=== PATIENT | male | born 1960 | race Caucasian/White ===

== ENCOUNTER → 2018-06-22 16:09 | Outpatient (CLI) | payer OTHER, SELFPAY ==
[2018-04-29 08:27] VITALS: BMI 34.9
[2018-06-22 17:37] LABS: T4 Free Direct 0.63 ng/dL (0.76-1.46); Thyroid Stim Hormone (TSH) 6.89 uIU/mL (0.358-3.74)
--- OUTSIDE RECORDS SUMMARY | 2018-09-24 09:01 | XMS RPT_ITS ---
:1960 Author Organization [facility] Care Team Providers Name Role Phone GANTA, LUCIA Attending Unavailable GANTA, LUCIA Referring Unavailable GANTA, LUCIA Referring Unavailable GANTA, LUCIA Attending Unavailable GANTA, LUCIA Referring Unavailable GANTA, LUCIA Referring Unavailable REY SPARROW (CHILD THERAPIST) Attending Unavailable GANTA, LUCIA Referring Unavailable HOA CORREA ([facility]) Attending Unavailable ELIECER GARDINER ([facility]) Referring Unavailable REY SPARROW (CHILD THERAPIST) Attending Unavailable Brian REED Referring Unavailable GANTA, LUCIA Referring Unavailable REY SPARROW ([facility]) Attending Unavailable REY SPARROW (CHILD THERAPIST) Referring Unavailable GANTA, LUCIA Referring Unavailable Zuleika Reed [employer] Attending Unavailable Zuleika Reed [employer] Referring Unavailable Ganta, Lucia Primary Care Unavailable Zuleika Reed [employer] Attending Unavailable Ganta, Lucia Referring Unavailable Ganta, Lucia Primary Care Unavailable Zuleika Reed [employer] Attending Unavailable Ganta, Lucia Referring Unavailable PROBLEMS PROBLEMS DATE TYPE CONDITION / CODE ATTENDING STATUS SOURCE 05/19/2018 Active 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 [facility] [place] therapy / Repository Z79.899(ICD-10) 04/29/2018 Unknown E03.9 - Zuleika Reed Active [place] Hypothyroidism, [employer] Community unspecified / Hospital E03.9(ICD-10) Repository 02/09/2015 Active Hypothyroidism, NA Active [facility] unspecified / [place] E03.9(ICD-10) Repository 08/21/2017 Active Other fatigue / NA Active [facility] R53.83(ICD-10) [place] Repository 08/21/2017 Active Major depressive NA Active [facility] disorder, single [place] episode, Repository unspecified / F32.9(ICD-10) 08/21/2017 Active Unknown / GANTA, LUCIA Active [facility] UNK(Unknown) [facility] [place] Repository PROCEDURES PROCEDURES No Procedure Records FoundRESULTS RESULTS FREE T3 Collected: 06/22/2018 Status: F Source: [place] 4:22 PM [facility] REPOSITORY TYPE CODE TESTS RESULT OUT OF RANGE REFERENCE UNITS LAB [id number] 2.18-3.98 pg/mL Normal FREE T3 3.0 Performed By: #### L501.48635, L501.9520, L506.0400 #### [facility] [address] [place], [place], [address] THYROID STIM HORMONE Collected: 06/22/2018 Status: F Source: [place] (TSH) 4:22 PM [facility] REPOSITORY TYPE CODE TESTS RESULT OUT OF RANGE REFERENCE UNITS LAB [id number] 0.358-3.74 uIU/mL High TSH 6.89 Performed By: #### L501.82260, L501.9520, L506.0400 #### [facility] [address] [place], [address] T4 FREE DIRECT Collected: 06/22/2018 Status: F Source: GEPP 4:22 PM [facility] REPOSITORY TYPE CODE TESTS RESULT OUT OF REFERENCE UNITS RANGE LAB [id number] 0.76-1.46 ng/dL Low T4 FREE 0.63 DIRECT Performed By: #### L501.40843, L501.9520, L506.0400 #### [facility] [address] [place], [address] CNNURSE Observed: 06/11/2018 Status: COMPLETED Source: [place] 3:45 PM [facility] REPOSITORY Nurse Visit (FAMPWS) WALDO FRANKS ([id number]) 1960 M Date Time Provider Department 06/11/18 3:45 PM [facility] During your visit today, we recorded the following information about you: Karely Mahmoodsammi TAMAYO 06/11/2018 3:45 PM Signed Manual Readin/82 Pulse: 78 Reason for blood pressure check - Last BP elevated and Medication adjustment Patient is: Taking medication as prescribed No Took medication today Yes If no, date medication last taken N/A Experiencing side effects Yes BP was elevated at last appt with Rey Sparrow CNP, on 05/21/18. Patient was to increase Valsartan to full 80mg daily. He states that he was until approx 1 week ago he cut back down to 1/2 tablet. Reports increased GI upset and fatigue. Denies any chest pain, shortness of breath, dizziness, or headaches. Daily caffeine use. No personal history of tobacco use; no current exposure. Alert and oriented. Pt has been identified by name and birthdate: Yes Allergies reviewed: Yes Latex allergy: no. Medication - prescribed and OTC reviewed and updated: Yes Do you need any prescription refills prior to your next visit: No Health Maintenance: Reviewed and not up to date and provider notified Patient advised that he would be contacted after review by Dr research associate quality control qc. Karely Segura LPN Referring Provider: LUCIA JOHNSTON [[id number]] Allergies As of Date: 06/11/2018 Noted Allergy Reaction CATS 12/07/2010 9 - Itching RAGWEED 12/07/2010 14 - Other: See Comments Comments: Itching eyes, breathing Date Reviewed: 05/21/2018 Reviewed by: Sarai Benavides LPN - Fully Assessed Reason for Visit: Blood Pressure Check [195] Primary Visit Diagnosis:Essential hypertension [I10] Prescriptions as of 06/11/2018 Sig: SILDENAFIL 50 MG TABLET Take 1 tablet by mouth as nee* VALSARTAN 80 MG TABLET Take 1 tablet by mouth once d* Patient taking differently: Take 40 mg by mouth once renée* ARMOUR THYROID 120 MG TABLET TAKE 1 TABLET DAILY IBUPROFEN 200 MG CAPSULE Take by mouth. * MULTIVITAMIN TABLET Take 1 tablet by mouth once d* * VITAMIN B COMPLEX CAPSULE Take 1 capsule by mouth once * * OTC PRODUCT twice daily. Magnesium comple* * VITAMIN D2 ORAL Take by mouth once daily. * ASCORBIC ACID (VITAMIN C) 500* Take 500 mg by mouth twice da* Problem List As Of Date 06/11/2018 Noted Resolved SKIN HYPERTRO/ATROPH NOS [L91.9, L90.9] INVALID FOR* BENIGN MARCUS SKIN TRUNK [D23.5] INVALID FOR* SEBORRHEIC KERATOSIS NOS [L82.1] INVALID FOR* CHR SOLAR SKIN DAMAGE NOS [L57.8] INVALID FOR* SCAR AND FIBROSIS OF SKIN [L90.5] INVALID FOR* UNCERTAIN BEHAV NEOPL SKIN [D48.5] INVALID FOR* AXILLARY////BENIGN NEOPLASM OF SKIN [216] INVALID FOR* Cough [R05] INVALID FOR* More... Acquired hypothyroidism [E03.9] INVALID FOR* More... Essential hypertension [I10] INVALID FOR* More... OA (osteoarthritis) of knee [M17.10] INVALID FOR* More... Encounter Status:Closed by KARELY SEGURA LPN on 06/11/18 PROGRESS Observed: 06/11/2018 Status: COMPLETED Source: [place] 3:36 PM [facility] [place] REPOSITORY O ID: [id number] Author: Karely Segura LPN Service: (none) Author Type: (none) Type: Progress Notes Filed: 06/11/2018 3:45 PM Note Text: Manual Readin/82 Pulse: 78 Reason for blood pressure check - Last BP elevated and Medication adjustment Patient is: Taking medication as prescribed No Took medication today Yes If no, date medication last taken N/A Experiencing side effects Yes BP was elevated at last appt with Rey Sparrow CNP, on 05/21/18. Patient was to increase Valsartan to full 80mg daily. He states that he was until approx 1 week ago he cut back down to 1/2 tablet. Reports increased GI upset and fatigue. Denies any chest pain, shortness of breath, dizziness, or headaches. Daily caffeine use. No personal history of tobacco use; no current exposure. Alert and oriented. Pt has been identified by name and birthdate: Yes Allergies reviewed: Yes Latex allergy: no. Medication - prescribed and OTC reviewed and updated: Yes Do you need any prescription refills prior to your next visit: No Health Maintenance: Reviewed and not up to date and provider notified Patient advised that he would be contacted after review by Dr research associate quality control qc. Karely Segura LPN PROGRESS Observed: 05/21/2018 Status: COMPLETED Source: [place] 11:13 AM [facility] [place] REPOSITORY O ID: [id number] Author: Rey Sparrow Service: (none) Author Type: Nurse Practitioner Type: Progress Notes Filed: 05/21/2018 12:10 PM Note Text: CC: Patient presents with: Recheck: Follow up HPI Waldo Franks is a 57 year old male who presents today for 6 wu follow up and review of recent labs. HTN: Mr. Franks indicates that he is feeling well and denies any symptoms referable to elevated blood pressure. Specifically denies headache, chest pain, palpitations, dyspnea and peripheral edema. Patient denies any side effects of his medication(s) and is compliant with their regimen, except only taking 1/2 of prescribed dose d/t previous GI upset, planned to resume full dose at last visit with PCP but reports he forgot. He does not check his BP regularly. Waldo gets minimal exercise, walks 15-20 minutes at lunchtime, would like to start using treadmill again but doesn't seem to have the energy lately.. He watches his diet for sodium, low fat and low cholesterol most of the time. Mk's He is doing well on his current dose of [place] Thyroid. Following with Endocrinology, currently discussing changing medications d/t T4/T3 levels. Notes he has been feeling fatigued lately and unable to lose weight in fact up a few pounds. On vitamin d supplement already. TSH recently checked, on higher end of normal. A1C noted to be slightly elevated at 5.7%. Reviewed levels with patient. Component Latest Ref Rng AND Units 05/19/2018 Hemoglobin A1C 4.3 - 5.6 % 5.7 (H) Estimated Average Glucose mg/dL 117 TSH 0.400 - 5.500 uU/mL 4.730 REVIEW OF SYSTEMS General: no fevers, no chills, no night sweats, no recurrent infections, no change in appetite and See HPI HEENT: no frequent or significant headaches, no visual changes, no nose bleeds, no sinus or nasal problems Positive: tinnitus bilaterally R>L states noted correlation with salt intake, varies in intensity but remains consistent. Decreased hearing noted Neck: no lumps, no pain and no swelling Respiratory: no cough, no wheezing, no shortness of breath, no hemoptysis Cardiovascular: no chest pain, no chest pressure, no palpitations and no swelling GI: No nausea, vomiting, or diarrhea Endocrine: no weight gain, no weight loss, no hair loss, no dry skin, no cold intolerance, no heat intolerance, no neck pain/pressure, no polyuria, no polyphagia, no polydipsia and See HPI Neurologic: No headache, weakness, numbness, tingling, neck stiffness, tremor, vertigo, dizziness, memory loss, syncope. PAST MEDICAL HISTORY Diagnosis Date - Depression - Mk's disease - Hypertension - Hypothyroid PAST SURGICAL HISTORY Procedure Laterality Date - COLONOSCOP W/ OR W/O [facility] SPEC 06/11/13 Colonoscopy - REMOVAL OF TONSILS,<12 Y/O 2004 Tonsillectomy alone - REPAIR ING HERNIA,5+Y/O,REDUCIBL Hernia repair, inguinal - REPAIR OF NASAL SEPTUM 1978 Septoplasty ALLERGIES Cats; [place] MEDICATIONS sildenafil (VIAGRA) 50 mg tablet Take 1 tablet by mouth as needed. Take 30 to 60min before sexual activity. ARMOUR THYROID 120 mg tablet TAKE 1 TABLET DAILY Ibuprofen 200 mg cap Take by mouth. multivitamin (MULTIPLE VITAMINS DAILY) ORAL tablet Take 1 tablet by mouth once daily. B Complex Vitamins (VITAMIN B COMPLEX) ORAL capsule Take 1 capsule by mouth once daily. OTC PRODUCT twice daily. Magnesium complex vitamin ERGOCALCIFEROL, VITAMIN D2, (VITAMIN D ORAL) Take by mouth once daily. ascorbic acid (VITAMIN C) 500 mg ORAL tablet Take 500 mg by mouth twice daily. valsartan (DIOVAN) 80 mg tablet Take 1 tablet by mouth once daily. FAMILY HISTORY Problem Relation Age of Onset - Thyroid Father hypothyroidism - other (Hodgkins) Father in remission, later from injuries in a car accident. - Breast Cancer Mother - other (Myastenia Gravis) Mother - other (ulcerative colitis) Mother - Cancer Maternal Grandfather liver - other (CHF) Maternal Grandmother - Diabetes Paternal Grandmother - other (IN) Paternal Grandfather - Hypertension Brother also kidney stones - hiatial hernia - other (mk's) Daughter - other (mk's) Daughter Social History Substance Use Topics - Smoking status: Never Smoker - Smokeless tobacco: Never Used - Alcohol use Yes Comment: rarely PHYSICAL EXAM BP 142/94 Pulse 84 Resp 20 Wt 121.1 kg (267 lb) BMI 35.23 kg/m? General Appearance: well appearing, in no acute distress, alert Pysch: affect is anxious Skin: Skin color, texture, turgor normal for age; Head: normocephalic, atraumatic Eyes: conjunctiva pink and moist, no icterus, sclera white, non-injected Ears: external ears normal to inspection and palpation, canals clear, Left tympanic membrane normal. , Right tympanic membrane normal Neck: Thyroid normal size and symmetric without palpable nodules, No adenopathy Oropharynx: lips normal without lesions, tongue midline and normal, soft palate, uvula, and tonsils normal Lungs: lungs clear to auscultation. No wheezing, rhonchi, rales Heart: RRR without murmur, gallop, or rubs. No ectopy Abdomen: Abdomen soft, non-tender mildly distended . Bowel sounds normal. No masses, organomegaly BP CONTROLLED (<130/80) due on 10/16/1977 DTAP,TDAP,TD(1 - Tdap) due on 03/17/2013 ANNUAL PCP TEAM CHRONIC DISEASE VISIT due on 04/07/2019 DIABETES SCREEN due on 05/19/2021 LIPID SCREEN due on 07/05/2021 COLORECTAL CANCER SCREENING,SEE MODIFIER due on 06/11/2023 PROSTATE CANCER SCREENING DISCUSSION Completed INFLUENZA Completed HEPATITIS C SCREENING Completed ASSESSMENT/PLAN: 1. Essential hypertension - ICD9: 401.9, ICD10: I10 (primary diagnosis) - suboptimal control - Begin full dose valsartan - Encouraged dietary sodium restriction/DASH diet - Recommended regular aerobic exercise. - Recommend home blood pressure monitoring, to bring results in on next visit - Follow up in 1 month for BP recheck. - Recheck in 6 months, sooner should new symptoms or problems arise. - Goal of BP <130/80 - Recommended no refined sugar, low refined starch, healthy oil intake (olive oil), healthy protein (fish) along the lines of the Mediterranean diet. 2. Acquired hypothyroidism - ICD9: 244.9, ICD10: E03.9 - Instructed patient on importance of taking on an empty stomach either first thing in the morning or at bedtime. - Follows with Endocrinology, upcoming appointment in few weeks - Follow up in 6 months 3. Prediabetes - ICD9: 790.29, ICD10: R73.03 - Mildly elevated A1C, reviewed results with patient. Discussed alf risk for developing diabetes - Recommend diet and exercise - Recheck labs in ~6 months, sooner for new or worsening symptoms 4. Fatigue, unspecified type - ICD9: 780.79, ICD10: R53.83 - Discussed potential thyroid involvement, previous discussion had with can line examiner re: medication changes. TSH remains on the high end of normal - CBC - VITAMIN D 25 HYDROXY 5. History of vitamin D deficiency - ICD9: V12.1, ICD10: Z86.39 - VITAMIN D 25 HYDROXY 6. Tinnitus of both ears - ICD9: 388.30, ICD10: H93.13 - Ongoing, no acute or concerning exam findings this visit - CONSULT TO ENT Rey Sparrow APRN.CHILD THERAPIST Prescription instructions reviewed with patient as applicable. Potential red flag symptoms discussed with the patient. Reviewed appropriate action plan to take if red flag symptoms occur. Patient agreeable to treatment plan. CNOV Observed: 05/21/2018 Status: COMPLETED Source: [place] 11:00 AM [facility] REPOSITORY Office Visit (INTMWS) WALDO FRANKS ([id number]) 1960 M Date Time Provider Department 05/21/18 11:00 AM REY SPARROW ([place]) IN[facility]WS During your visit today, we recorded the following information about you: Pulse Respiration Blood pressure Weight 84/minute 20/minute 150/96 121.1 kg Rey Sparrow APRN.CNP 05/21/2018 12:10 PM Signed CC: Patient presents with: Recheck: Follow up HPI Waldo Franks is a 57 year old male who presents today for 6 wu follow up and review of recent labs. HTN: Mr. Franks indicates that he is feeling well and denies any symptoms referable to elevated blood pressure. Specifically denies headache, chest pain, palpitations, dyspnea and peripheral edema. Patient denies any side effects of his medication(s) and is compliant with their regimen, except only taking 1/2 of prescribed dose d/t previous GI upset, planned to resume full dose at last visit with PCP but reports he forgot. He does not check his BP regularly. Waldo gets minimal exercise, walks 15-20 minutes at lunchtime, would like to start using treadmill again but doesn't seem to have the energy lately.. He watches his diet for sodium, low fat and low cholesterol most of the time. Mk's He is doing well on his current dose of [place] Thyroid. Following with Endocrinology, currently discussing changing medications d/t T4/T3 levels. Notes he has been feeling fatigued lately and unable to lose weight in fact up a few pounds. On vitamin d supplement already. TSH recently checked, on higher end of normal. A1C noted to be slightly elevated at 5.7%. Reviewed levels with patient. Component Latest Ref Rng AND Units 05/19/2018 Hemoglobin A1C 4.3 - 5.6 % 5.7 (H) Estimated Average Glucose mg/dL 117 TSH 0.400 - 5.500 uU/mL 4.730 REVIEW OF SYSTEMS General: no fevers, no chills, no night sweats, no recurrent infections, no change in appetite and See HPI HEENT: no frequent or significant headaches, no visual changes, no nose bleeds, no sinus or nasal problems Positive: tinnitus bilaterally R>L states noted correlation with salt intake, varies in intensity but remains consistent. Decreased hearing noted Neck: no lumps, no pain and no swelling Respiratory: no cough, no wheezing, no shortness of breath, no hemoptysis Cardiovascular: no chest pain, no chest pressure, no palpitations and no swelling GI: No nausea, vomiting, or diarrhea Endocrine: no weight gain, no weight loss, no hair loss, no dry skin, no cold intolerance, no heat intolerance, no neck pain/pressure, no polyuria, no polyphagia, no polydipsia and See HPI Neurologic: No headache, weakness, numbness, tingling, neck stiffness, tremor, vertigo, dizziness, memory loss, syncope. PAST MEDICAL HISTORY Diagnosis Date - Depression - Mk's disease - Hypertension - Hypothyroid PAST SURGICAL HISTORY Procedure Laterality Date - COLONOSCOP W/ OR W/O [facility] SPEC 06/11/13 Colonoscopy - REMOVAL OF TONSILS,<12 Y/O 2004 Tonsillectomy alone - REPAIR ING HERNIA,5+Y/O,REDUCIBL Hernia repair, inguinal - REPAIR OF NASAL SEPTUM 1978 Septoplasty ALLERGIES Cats; [place] MEDICATIONS sildenafil (VIAGRA) 50 mg tablet Take 1 tablet by mouth as needed. Take 30 to 60min before sexual activity. ARMOUR THYROID 120 mg tablet TAKE 1 TABLET DAILY Ibuprofen 200 mg cap Take by mouth. multivitamin (MULTIPLE VITAMINS DAILY) ORAL tablet Take 1 tablet by mouth once daily. B Complex Vitamins (VITAMIN B COMPLEX) ORAL capsule Take 1 capsule by mouth once daily. OTC PRODUCT twice daily. Magnesium complex vitamin ERGOCALCIFEROL, VITAMIN D2, (VITAMIN D ORAL) Take by mouth once daily. ascorbic acid (VITAMIN C) 500 mg ORAL tablet Take 500 mg by mouth twice daily. valsartan (DIOVAN) 80 mg tablet Take 1 tablet by mouth once daily. FAMILY HISTORY Problem Relation Age of Onset - Thyroid Father hypothyroidism - other (Hodgkins) Father in remission, later from injuries in a car accident. - Breast Cancer Mother - other (Myastenia Gravis) Mother - other (ulcerative colitis) Mother - Cancer Maternal Grandfather liver - other (CHF) Maternal Grandmother - Diabetes Paternal Grandmother - other ([place]) Paternal Grandfather - Hypertension Brother also kidney stones - hiatial hernia - other (mk's) Daughter - other (mk's) Daughter Social History Substance Use Topics - Smoking status: Never Smoker - Smokeless tobacco: Never Used - Alcohol use Yes Comment: rarely PHYSICAL EXAM BP 142/94 Pulse 84 Resp 20 Wt 121.1 kg (267 lb) BMI 35.23 kg/m? General Appearance: well appearing, in no acute distress, alert Pysch: affect is anxious Skin: Skin color, texture, turgor normal for age; Head: normocephalic, atraumatic Eyes: conjunctiva pink and moist, no icterus, sclera white, non-injected Ears: external ears normal to inspection and palpation, canals clear, Left tympanic membrane normal. , Right tympanic membrane normal Neck: Thyroid normal size and symmetric without palpable nodules, No adenopathy Oropharynx: lips normal without lesions, tongue midline and normal, soft palate, uvula, and tonsils normal Lungs: lungs clear to auscultation. No wheezing, rhonchi, rales Heart: RRR without murmur, gallop, or rubs. No ectopy Abdomen: Abdomen soft, non-tender mildly distended . Bowel sounds normal. No masses, organomegaly BP CONTROLLED (<130/80) due on 10/16/1977 DTAP,TDAP,TD(1 - Tdap) due on 03/17/2013 ANNUAL PCP TEAM CHRONIC DISEASE VISIT due on 04/07/2019 DIABETES SCREEN due on 05/19/2021 LIPID SCREEN due on 07/05/2021 COLORECTAL CANCER SCREENING,SEE MODIFIER due on 06/11/2023 PROSTATE CANCER SCREENING DISCUSSION Completed INFLUENZA Completed HEPATITIS C SCREENING Completed ASSESSMENT/PLAN: 1. Essential hypertension - ICD9: 401.9, ICD10: I10 (primary diagnosis) - suboptimal control - Begin full dose valsartan - Encouraged dietary sodium restriction/DASH diet - Recommended regular aerobic exercise. - Recommend home blood pressure monitoring, to bring results in on next visit - Follow up in 1 month for BP recheck. - Recheck in 6 months, sooner should new symptoms or problems arise. - Goal of BP <130/80 - Recommended no refined sugar, low refined starch, healthy oil intake (olive oil), healthy protein (fish) along the lines of the Mediterranean diet. 2. Acquired hypothyroidism - ICD9: 244.9, ICD10: E03.9 - Instructed patient on importance of taking on an empty stomach either first thing in the morning or at bedtime. - Follows with Endocrinology, upcoming appointment in few weeks - Follow up in 6 months 3. Prediabetes - ICD9: 790.29, ICD10: R73.03 - Mildly elevated A1C, reviewed results with patient. 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 Fatigue, unspecified type - ICD9: 780.79, ICD10: R53.83 - Discussed potential thyroid involvement, previous discussion had with can line examiner re: medication changes. TSH remains on the high end of normal - CBC - VITAMIN D 25 HYDROXY 5. History of vitamin D deficiency - ICD9: V12.1, ICD10: Z86.39 - VITAMIN D 25 HYDROXY 6. Tinnitus of both ears - ICD9: 388.30, ICD10: H93.13 - Ongoing, no acute or concerning exam findings this visit - CONSULT TO ENT Rey Sparrow APRN.[place] Prescription instructions reviewed with patient as applicable. Potential red flag symptoms discussed with the patient. Reviewed appropriate action plan to take if red flag symptoms occur. Patient agreeable to treatment plan. Rey Sparrow APRN.CNP 05/21/2018 11:46 AM Signed Begin full dose of Valsartan. Please notify office if unable to tolerate or having GI symptoms. Otherwise follow up in 3-4 weeks with nurse visit for BP check. Goal is BP <140/90. Referring Provider: REY SPARROW ([place]) [[id number]] Allergies As of Date: 05/21/2018 Noted Allergy Reaction CATS 12/07/2010 9 - Itching RAGWEED 12/07/2010 14 - Other: See Comments Comments: Itching eyes, breathing Date Reviewed: 05/21/2018 Reviewed by: Sarai Benavides LPN - Fully Assessed Reason for Visit: Recheck [92] Cmt: Follow up Primary Visit Diagnosis:Essential hypertension [I10] Other Visit Diagnoses:Acquired hypothyroidism [E03.9] Prediabetes [R73.03] Fatigue, unspecified type [R53.83] History of vitamin D deficiency [Z86.39] Tinnitus of both ears [H93.13] Comment:R>L Order(s):CBC [SQCBC] Order #: [id number] FUTURE VITAMIN D 25 HYDROXY [SQVITD] Order #: [id number] FUTURE CONSULT TO ENT [9008] Order #: [id number]: 1 HGB A1C [[id number]] Order #: [id number] FUTURE Prescriptions as of 05/21/2018 Sig: SILDENAFIL 50 MG TABLET Take 1 tablet by mouth as nee* ARMOUR THYROID 120 MG TABLET TAKE 1 TABLET DAILY IBUPROFEN 200 MG CAPSULE Take by mouth. * MULTIVITAMIN TABLET Take 1 tablet by mouth once d* * VITAMIN B COMPLEX CAPSULE Take 1 capsule by mouth once * * OTC PRODUCT twice daily. Magnesium comple* * VITAMIN D2 ORAL Take by mouth once daily. * ASCORBIC ACID (VITAMIN C) 500* Take 500 mg by mouth twice da* VALSARTAN 80 MG TABLET Take 1 tablet by mouth once d* Problem List As Of Date 05/21/2018 Noted Resolved SKIN HYPERTRO/ATROPH NOS [L91.9, L90.9] INVALID FOR* BENIGN MARCUS SKIN TRUNK [D23.5] INVALID FOR* SEBORRHEIC KERATOSIS NOS [L82.1] INVALID FOR* CHR SOLAR SKIN DAMAGE NOS [L57.8] INVALID FOR* SCAR AND FIBROSIS OF SKIN [L90.5] INVALID FOR* UNCERTAIN BEHAV NEOPL SKIN [D48.5] INVALID FOR* AXILLARY////BENIGN NEOPLASM OF SKIN [216] INVALID FOR* Cough [R05] INVALID FOR* More... Acquired hypothyroidism [E03.9] INVALID FOR* More... Essential hypertension [I10] INVALID FOR* More... OA (osteoarthritis) of knee [M17.10] INVALID FOR* More... Other instructions from your clinician: Begin full dose of Valsartan. Please notify office if unable to tolerate or having GI symptoms. Otherwise follow up in 3-4 weeks with nurse visit for BP check. Goal is BP <140/90. Medications Discontinued During This Encounter meloxicam (MOBIC) 7.5 mg tablet 20 t* 0 04/07/2018 05/21/2018 Route: ORAL Sig: Take 1 tablet by mouth once daily. for pain. Take with food. Patient not taking: Reported on 05/21/2018 Disc: Reason for discontinue is not on file. predniSONE (DELTASONE) 10 mg tablet 21 t* 0 02/09/2018 05/21/2018 Si tabs po day 1, then 5 tabs day 2, 4 tabs day 3, 3 tabs day 4, 2 tabs day 5, 1 tab day 6. Disc: Reason for discontinue is not on file. Disposition: Return in about 6 months (around 11/18/2018). Follow-up and Disposition History Recorded Encounter Status:Closed by REY SPARROW CNP on 05/21/18 TSH Collected: 05/19/2018 Status: F Source: [place] 11:57 AM [facility] REPOSITORY TYPE CODE TESTS RESULT OUT OF RANGE REFERENCE UNITS LAB TSH 0.400-5.500 uU/mL TSH 4.730 Performed By: #### TSH #### [facility] [address], [place] [address] HEMOGLOBIN A1C Collected: 05/19/2018 Status: F Source: [place] 11:57 AM [facility] TYPE CODE TESTS RESULT OUT OF REFERENCE UNITS RANGE LAB HGBA1C 4.3-5.6 % High Hemoglobin A1c 5.7 Result Comment: [place] [employer] guidelines indicate that patients with HgbA1c in the range 5.7-6.4% are at increased risk for development of diabetes, and intervention by lifestyle modification may be beneficial. HgbA1c greater or equal to 6.5% is considered diagnostic of diabetes. LAB HBA0 mg/dL Est. Average Glucose 117 Result Comment: eAG: (Estimated average glucose) is a calculated value from HgbA1c and is hotel services sales representative of the average blood glucose level in the last 2-3 month period. Performed By: #### HBA1C #### [facility] [address], [place] [address] CNPTOUTREACH Observed: 05/05/2018 Status: COMPLETED Source: [place] 12:00 AM [facility] Patient Outreach (FAMPST) WALDO [id number]) 1960 M Date Time Provider Department 05/05/18 LUCIA JOHNSTON During your visit today, we recorded the following information about you: Allergies As of Date: 05/05/2018 Noted Allergy Reaction CATS 12/07/2010 9 - Itching RAGWEED 12/07/2010 14 - Other: See Comments Comments: Itching eyes, breathing Date Reviewed: 04/07/2018 Reviewed by: Dayana Lacey Ma - Fully Assessed Visit Diagnosis:Medication management [Z79.899] Order(s):HGB A1C [TGYNF1T] Order #: [id number] FUTURE Prescriptions as of 05/05/2018 Sig: SILDENAFIL 50 MG TABLET Take 1 tablet by mouth as nee* VALSARTAN 80 MG TABLET Take 1 tablet by mouth once d* X MELOXICAM 7.5 MG TABLET Take 1 tablet by mouth once d* Patient not taking: Reported on 05/21/2018 X PREDNISONE 10 MG TABLET 6 tabs po day 1, then 5 tabs * ARMOUR THYROID 120 MG TABLET TAKE 1 TABLET DAILY IBUPROFEN 200 MG CAPSULE Take by mouth. * MULTIVITAMIN TABLET Take 1 tablet by mouth once d* * VITAMIN B COMPLEX CAPSULE Take 1 capsule by mouth once * * OTC PRODUCT twice daily. Magnesium comple* * VITAMIN D2 ORAL Take by mouth once daily. * ASCORBIC ACID (VITAMIN C) 500* Take 500 mg by mouth twice da* Problem List As Of Date 05/05/2018 Noted Resolved SKIN HYPERTRO/ATROPH NOS [L91.9, L90.9] INVALID FOR* BENIGN MARCUS SKIN TRUNK [D23.5] INVALID FOR* SEBORRHEIC KERATOSIS NOS [L82.1] INVALID FOR* CHR SOLAR SKIN DAMAGE NOS [L57.8] INVALID FOR* SCAR AND FIBROSIS OF SKIN [L90.5] INVALID FOR* UNCERTAIN BEHAV NEOPL SKIN [D48.5] INVALID FOR* AXILLARY////BENIGN NEOPLASM OF SKIN [216] INVALID FOR* Cough [R05] INVALID FOR* More... Acquired hypothyroidism [E03.9] INVALID FOR* More... Essential hypertension [I10] INVALID FOR* More... OA (osteoarthritis) of knee [M17.10] INVALID FOR* More... Encounter Status:Closed by EBEN MIRAMONTESUSER on 06/05/18 OFFICE VISIT REPORT Observed: 04/29/2018 Status: F Source: [place] 1:04 PM [facility] [place] [address] OFFICE VISIT Date of Service: 04/29/18 MR#: [id number] Acct: [id number] Patient: WALDO FRANKS Rep #: [id number] : 1960 Provider: Zuleika Reed NP Age/Sex: 57/M Location: [facility] [place] Status: Signed Intake Vital Signs04/29/18 Height 6 ft 1 in 04/29/18 Weight: 265 lb 04/29/18 Body Mass Index (BMI) 34.9 04/29/18 Blood Pressure 127/86 H 04/29/18 Blood Pressure Location Lt popliteal 04/29/18 Blood Pressure Position Sitting Intake Visit Reasons: Pre-diabetes, Hypothyroidism Field Care Manager Required: No Accompanied by: Self Allergies No Known Allergies Allergy (Verified 04/29/18 08:25) cats Allergy (Severe, Uncoded 04/29/18 08:25) Unknown hay fever Allergy (Severe, Uncoded 04/29/18 08:25) Unknown Medications thyroid (pork) 120 mg tablet 120 mg PO QDAY 09/11/17 [History Confirmed 04/29/18] valsartan 40 mg tablet 40 mg PO DAILY tab 04/29/18 [History Confirmed 04/29/18] PFSH Medical History Mk's disease (Acute) High cholesterol (Acute) High triglycerides (Acute) Pre-diabetes (Acute) Seasonal allergies (Acute) Thyroid disease (Acute) HTN (hypertension) (Chronic) Surgical History H/O hernia repair (Acute) Hx of tonsillectomy (Acute) Family History Father Asthma Cancer Hypertension Thyroid disorder Mother Breast cancer Osteoporosis Myasthenia gravis Daughter Thyroid disorder Brother Kidney stones Social History Smoking Status: Never smoker second hand exposure: No alcohol intake: current substance use type: does not use HPI HPI Details: WALDO FRANKS is a 57 M who presents to the office today f Details: WALDO KNEBUSCH, is a 56 M who presents to the office today for hypothyroidism. States he was diagnosed in 2014. Currently takes armoir thyroid 120mcg. States this was changed from 90mcg at his last visit a few months ago. Severity, modifying factors, context, and associated signs and symptoms are as follows: Thyroid pain: No Energy: good Sleep: awakened refreshed Temp: No intolerance GI: Normal bowel Weight: increased Eyes: No change in vision Memory: unchanged Diaphoresis: Not significant Skin: Dry Hair : Unchanged Neuro: No numbness, tingling or tremors Feels as though he has brain fog. No difficulty swallowing or choking on food. Takes his armoir daily. Does not miss any doses. Does not take within 4 hours of vitamins,iron, or calcium. TSH 6.04 09/2016 TSH 5.22 10/24/17 Exam Const General: comfortable, no acute distress Nutritional Appearance: well nourished Orientation: oriented x3 HENMT Head: normal to inspection, atraumatic Ears: hearing grossly normal bilaterally Mouth: oral mucosae normal, moist mucous membranes Teeth and gingiva: dentition normal Eyes Eyelids: eyelids normal Conjunctivae: conjunctivae normal Sclera: sclerae normal Neck Neck: normal visual inspection, full ROM Neck mass: No Thyroid: thyroid normal Resp Effort AND Inspection: normal respiratory effort, able to speak in complete sentences, symmetric chest movement Auscultation: Bilateral: Clear to Auscultation Cardio Rate: regular rate Rhythm: regular rhythm Heart Sounds: S1 normal, S2 normal GI Inspection: normal to inspection Auscultation: normal bowel sounds Palpation: soft Musc Musculoskeletal: No muscle weakness Skin General: no rashes or lesions noted Wounds: no wounds Neuro General: gait normal Cognition: normal cognition Speech: speech normal Extrem General: normal to inspection, full ROM, no edema Psych Appearance: well kempt Mental Status: mental status grossly normal Mood: congruent mood Affect: normal affect Speech and Movement: speech and movement normal Attitude: cooperative Thought Process: normal Thought Content: normal Judgment: judgment good ROS Const Constitutional: No anorexia, body ache, chills, fatigue, fever(s), frequent falls, decreased energy, malaise, night sweats, weakness, weight change, sleep problems, abnormal sleep pattern, change in appetite, other, headache(s), snoring or excessive sweating Eyes Eyes: No blurry vision, change in vision, double vision, discharge, dry eyes, bulging eyes, floaters, visual disturbances, eye pain, light sensitivity, spots in vision, tunnel vision or other ENT ENT: Positive for neck pain; no abnormal hearing, ear pain, ear discharge, ear pressure, hearing loss, tinnitus, dizziness/vertigo, balance problems, nosebleed/epistaxis, nasal congestion, nasal obstruction, nose pain, sinus pressure, sinus pain, nasal discharge, post nasal drip, headache(s), facial pain, dental pain, dry mouth, bad breath, hoarseness, lip swelling, mouth lesions, mouth pain, sore throat, tongue swelling, throat swelling, other or difficulty swallowing Resp Respiratory: No cough, change in phlegm color, chest congestion, excessive phlegm production, hemoptysis, pain on inspiration, shortness of breath, pain with cough, snoring, stridor, wheezing or other Cardio Cardiology: No chest pain at rest, chest pain with exertion, leg pain with exertion, excessive sweating, shortness of breath, dyspnea on exertion, generalized swelling, irregular heart rhythm, lightheadedness, orthopnea, radiating jaw, neck or arm pain, fast heart rate, slow heart rate, palpitations or other Gastro GI: No abdominal pain, belching, bloating, change in bowel habits, change in stool character, coffee ground emesis, constipation, cramping, diarrhea, heartburn, difficulty swallowing, feeling full early, excessive flatus, incontinent of stools, Vomiting blood/hematemesis, blood in stool, loose stools, Black,tarry stools, nausea/dyspepsia, pain with swallowing, vomiting or other Genitourinary Male: No difficulty urinating, burning urination, painful urination, urinary incontinence, urinary frequency, urinary urgency, urinary hesitancy, urinary retention, blood in urine, Frequent nighttime urination/ nocturia, post void dribbling, suprapubic fullness, side pain, sexual problems, genital lesions, genital itching, erectile dysfunction, penile discharge, difficulty with ejaculations, blood in semen, scrotal swelling, testicle lump, testicle pain or other Musc Musculoskeletal: Positive for joint pain (bilat shoulders) and neck pain; no abnormal walking, back pain, deformity, joint swelling, limited range of motion, loss of height, muscle cramps, muscle weakness, decreased muscle mass, body aches, numbness, radiating pain into limb, stiffness, tingling or other Skin Skin: No acne, hair loss, change in hair, nail changes, boil, change in skin color, dry skin, redness, excessive hair growth, yellowing of the skin, lesions, itching, rash, skin pain, skin ulcer, sores, skin swelling, wounds or other Breast Breast: No other Neuro Neurology: No frequent falls, weakness, visual disturbances, abnormal hearing, headache(s), abnormal walking, numbness or tingling Psych Psychiatric: No abnormal sleep pattern, No change in appetite Endo Endocrine: No fatigue, other or excessive sweating Aller/Imm Allergy/Immunologic: No lip swelling, tongue swelling, throat swelling, wheezing or itchy eyes Exam Musc Musculoskeletal: No muscle weakness Assessment AND Plan 1. Hypothyroidism (acquired) E03.9 Plan Labs done after last adjustment noted TSH in range. However, more recenlty patient feels he has some sense of not as alert and quick when doing his research and papers. Will recheck his labs at this time. Orders Orders: Plan Detail Other Medications New: Additional Comments Spent approximately 30 minutes with patient with over 50% of time spent in discussion and counseling regarding medication adjustment, symptoms and treatment of hypothyroidism. Coding Level of Care Code Off vis,est,level 3 Diagnoses Hypothyroidism (acquired) E03.9 04/29/18 1304 <Electronically signed by Zuleika DAVIS> Date Zuleika DAVIS Cosigner Signature: Date (if applicable) CC: PROGRESS Observed: 04/07/2018 Status: COMPLETED Source: [place] 11:08 AM [facility] REPOSITORY HNO ID: [id number] Author: Rey Sparrow Service: (none) Author Type: Nurse Practitioner Type: Progress Notes Filed: 04/07/2018 12:35 PM Note Text: CC: Patient presents with: Pain: Neck and shoulder pain x 3 weeks, fatigue, Hx of Hoshimotos HPI Waldo Franks is a 57 year old male who presents Patient is left hand dominant. Patient notes that this pain has been present for x3 weeks. Patient does not recall any specific injury. Patient notes that this pain began after recent illness.. He notes that pain is localized to the right posterior shoulder pain and left posterior shoulder pain alternating, currently left shoulder is causing discomfort He notes the pain to be intermittent. He notes that this problem exhibits aggravating factors of as above. He notes that this problem exhibits alleviating factors of Heat therapy and ASA. He notes no interruption of sleep from the symptoms, noted the first week but since resolved He notes neck pain bilaterally. Patient notes associated symptoms of popping. Patient reports ongoing bilateral neck and shoulder pain x3 week. He reports URI like symptoms prior to pain. URI symptoms have since resolved, but continues to have bilateral posterior neck pain that will radiate into posteior shoulder muscle alternately. Patient reports noticing a popping sound with lateral extension to the left. Pain is described as a stiffness, currently rated 3-4/10. Patient reports pain is gradually improving over the past 3 days. Associated symptoms include fatigue however patient states he is unsure if this is related to his Hoshimoto's, very slight headache intermittently that starts at the back of the neck/head and radiates up the crown and intermittent imbalance when navigating his home after getting up from a lying position. Tried ASA daily and leftover prednisone taper without much relief. Pain is worsening with more strenuous activities ie: mowing lawn. Denies any recent fever, chills, ear pain, chest pain, SOB, abdominal pain, nausea or vomiting. Also denies any joint pains or sick contacts. Indicates decreased interest in food more recently. Patient notes he was previously test for Lyme disease earlier this year after finding tick on his left calf. He states he does work out in the [place] at home and is always a bit concerned for tick bites/Lyme disease. Also notes some increased stress at work, otherwise no recent activity or life changes. No recent injury trauma or falls. PAST MEDICAL HISTORY Diagnosis Date - Depression - Mk's disease - Hypertension - Hypothyroid PAST SURGICAL HISTORY Procedure Laterality Date - COLONOSCOP W/ OR W/O [facility] SPEC 06/11/13 Colonoscopy - REMOVAL OF TONSILS,<12 Y/O 2004 Tonsillectomy alone - REPAIR ING HERNIA,5+Y/O,REDUCIBL Hernia repair, inguinal - REPAIR OF NASAL SEPTUM 1978 Septoplasty ALLERGIES Cats; Ragweed MEDICATIONS valsartan (DIOVAN) 80 mg tablet Take 1 tablet by mouth once daily. predniSONE (DELTASONE) 10 mg tablet 6 tabs po day 1, then 5 tabs day 2, 4 tabs day 3, 3 tabs day 4, 2 tabs day 5, 1 tab day 6. sildenafil (VIAGRA) 50 mg tablet Take 1 tablet by mouth as needed. Take 30 to 60min before sexual activity. ARMOUR THYROID 120 mg tablet TAKE 1 TABLET DAILY Ibuprofen 200 mg cap Take by mouth. multivitamin (MULTIPLE VITAMINS DAILY) ORAL tablet Take 1 tablet by mouth once daily. B Complex Vitamins (VITAMIN B COMPLEX) ORAL capsule Take 1 capsule by mouth once daily. OTC PRODUCT twice daily. Magnesium complex vitamin ERGOCALCIFEROL, VITAMIN D2, (VITAMIN D ORAL) Take by mouth once daily. ascorbic acid (VITAMIN C) 500 mg ORAL tablet Take 500 mg by mouth twice daily. FAMILY HISTORY Problem Relation Age of Onset - Thyroid Father hypothyroidism - other (Hodgkins) Father in remission, later from injuries in a car accident. - Breast Cancer Mother - other (Myastenia Gravis) Mother - other (ulcerative colitis) Mother - Cancer Maternal Grandfather liver - other (CHF) Maternal Grandmother - Diabetes Paternal Grandmother - other ([place]) Paternal Grandfather - Hypertension Brother also kidney stones - hiatial hernia - other (mk's) Daughter - other (mk's) Daughter Social History Substance Use Topics - Smoking status: Never Smoker - Smokeless tobacco: Never Used - Alcohol use Yes Comment: rarely REVIEW OF SYSTEMS General: no fevers, no chills, no night sweats, no recurrent infections, no change in appetite, no significant changes in weight and See HPI Neck: no lumps, and no swelling Respiratory: no cough, no wheezing, no shortness of breath, no hemoptysis Cardiovascular: no chest pain, no chest pressure, no palpitations and no swelling GI: No nausea, vomiting, or diarrhea Musculoskeletal: See HPI PHYSICAL EXAM: General Appearance: Well appearing, alert, in no acute distress, well-hydrated, well nourished.. Skin: Skin color, texture, turgor normal, no suspicious rashes or lesions. Neck: Inspection: skin intact, no erythema or edema Palpation: non-tender Flexion: Normal Extension: Minimal limitation Sidebend Right: Minimal limitation Sidebend Left: Moderate limitation Rotation Right: Minimal limitation Rotation Left: Moderate limitation Musculoskeletal: normal cervical posture, shoulder alignment, and no joint deformities or swelling noted Full painless ROM of bilateral shoulders Apley scratch test: negative ASSESSMENT/PLAN: 1. Cervicalgia - ICD9: 723.1, ICD10: M54.2 (primary diagnosis) - Recommend rest, ice and NSAIDs x1 week - Recommend gentle neck stretching exercises 1-2x daily, exercise instructions provided - MELOXICAM 7.5 MG TABLET - Follow up in 1 week if no symptom improvement, sooner for new or worsening symptoms 2. Strain of cervical portion of both trapezius muscles - ICD9: 840.8, ICD10: S16.1XXA - Plan as above, see #1 - MELOXICAM 7.5 MG TABLET SONALI LevineOV Observed: 04/07/2018 Status: COMPLETED Source: [place] 10:40 AM [facility] REPOSITORY Office Visit (INTMWS) WALDO FRANKS ([id number]) 1960 M Date Time Provider Department 04/07/18 10:40 AM REY SPARROW ([facility]) INTMWS During your visit today, we recorded the following information about you: Temperature Pulse Respiration Blood pressure 97.8 degrees 88/minute 16/minute 140/98 Weight 118.8 kg Rey Sparrow APRN.CNP 04/07/2018 12:35 PM Signed CC: Patient presents with: Pain: Neck and shoulder pain x 3 weeks, fatigue, Hx of Hoshimotos HPI Waldo Bassamishaliz is a 57 year old male who presents Patient is left hand dominant. Patient notes that this pain has been present for x3 weeks. Patient does not recall any specific injury. Patient notes that this pain began after recent illness.. He notes that pain is localized to the right posterior shoulder pain and left posterior shoulder pain alternating, currently left shoulder is causing discomfort He notes the pain to be intermittent. He notes that this problem exhibits aggravating factors of as above. He notes that this problem exhibits alleviating factors of Heat therapy and ASA. He notes no interruption of sleep from the symptoms, noted the first week but since resolved He notes neck pain bilaterally. Patient notes associated symptoms of popping. Patient reports ongoing bilateral neck and shoulder pain x3 week. He reports URI like symptoms prior to pain. URI symptoms have since resolved, but continues to have bilateral posterior neck pain that will radiate into posteior shoulder muscle alternately. Patient reports noticing a popping sound with lateral extension to the left. Pain is described as a stiffness, currently rated 3-4/10. Patient reports pain is gradually improving over the past 3 days. Associated symptoms include fatigue however patient states he is unsure if this is related to his Hoshimoto's, very slight headache intermittently that starts at the back of the neck/head and radiates up the crown and intermittent imbalance when navigating his home after getting up from a lying position. Tried ASA daily and leftover prednisone taper without much relief. Pain is worsening with more strenuous activities ie: mowing lawn. Denies any recent fever, chills, ear pain, chest pain, SOB, abdominal pain, nausea or vomiting. Also denies any joint pains or sick contacts. Indicates decreased interest in food more recently. Patient notes he was previously test for Lyme disease earlier this year after finding tick on his left calf. He states he does work out in the [place] at home and is always a bit concerned for tick bites/Lyme disease. Also notes some increased stress at work, otherwise no recent activity or life changes. No recent injury trauma or falls. PAST MEDICAL HISTORY Diagnosis Date - Depression - Mk's disease - Hypertension - Hypothyroid PAST SURGICAL HISTORY Procedure Laterality Date - COLONOSCOP W/ OR W/O [facility] SPEC 06/11/13 Colonoscopy - REMOVAL OF TONSILS,<12 Y/O 2004 Tonsillectomy alone - REPAIR ING HERNIA,5+Y/O,REDUCIBL Hernia repair, inguinal - REPAIR OF NASAL SEPTUM 1978 Septoplasty ALLERGIES Cats; Ragweed MEDICATIONS valsartan (DIOVAN) 80 mg tablet Take 1 tablet by mouth once daily. predniSONE (DELTASONE) 10 mg tablet 6 tabs po day 1, then 5 tabs day 2, 4 tabs day 3, 3 tabs day 4, 2 tabs day 5, 1 tab day 6. sildenafil (VIAGRA) 50 mg tablet Take 1 tablet by mouth as needed. Take 30 to 60min before sexual activity. ARMOUR THYROID 120 mg tablet TAKE 1 TABLET DAILY Ibuprofen 200 mg cap Take by mouth. multivitamin (MULTIPLE VITAMINS DAILY) ORAL tablet Take 1 tablet by mouth once daily. B Complex Vitamins (VITAMIN B COMPLEX) ORAL capsule Take 1 capsule by mouth once daily. OTC PRODUCT twice daily. Magnesium complex vitamin ERGOCALCIFEROL, VITAMIN D2, (VITAMIN D ORAL) Take by mouth once daily. ascorbic acid (VITAMIN C) 500 mg ORAL tablet Take 500 mg by mouth twice daily. FAMILY HISTORY Problem Relation Age of Onset - Thyroid Father hypothyroidism - other (Hodgkins) Father in remission, later from injuries in a car accident. - Breast Cancer Mother - other (Myastenia Gravis) Mother - other (ulcerative colitis) Mother - Cancer Maternal Grandfather liver - other (CHF) Maternal Grandmother - Diabetes Paternal Grandmother - other ([place]) Paternal Grandfather - Hypertension Brother also kidney stones - hiatial hernia - other (mk's) Daughter - other (mk's) Daughter Social History Substance Use Topics - Smoking status: Never Smoker - Smokeless tobacco: Never Used - Alcohol use Yes Comment: rarely REVIEW OF SYSTEMS General: no fevers, no chills, no night sweats, no recurrent infections, no change in appetite, no significant changes in weight and See HPI Neck: no lumps, and no swelling Respiratory: no cough, no wheezing, no shortness of breath, no hemoptysis Cardiovascular: no chest pain, no chest pressure, no palpitations and no swelling GI: No nausea, vomiting, or diarrhea Musculoskeletal: See HPI PHYSICAL EXAM: General Appearance: Well appearing, alert, in no acute distress, well-hydrated, well nourished.. Skin: Skin color, texture, turgor normal, no suspicious rashes or lesions. Neck: Inspection: skin intact, no erythema or edema Palpation: non-tender Flexion: Normal Extension: Minimal limitation Sidebend Right: Minimal limitation Sidebend Left: Moderate limitation Rotation Right: Minimal limitation Rotation Left: Moderate limitation Musculoskeletal: normal cervical posture, shoulder alignment, and no joint deformities or swelling noted Full painless ROM of bilateral shoulders Apley scratch test: negative ASSESSMENT/PLAN: 1. Cervicalgia - ICD9: 723.1, ICD10: M54.2 (primary diagnosis) - Recommend rest, ice and NSAIDs x1 week - Recommend gentle neck stretching exercises 1-2x daily, exercise instructions provided - MELOXICAM 7.5 MG TABLET - Follow up in 1 week if no symptom improvement, sooner for new or worsening symptoms 2. Strain of cervical portion of both trapezius muscles - ICD9: 840.8, ICD10: S16.1XXA - Plan as above, see #1 - MELOXICAM 7.5 MG TABLET Rey Sparrow APRN.ASHLEIGH Sparrow APRN.ASHLEIGH 04/07/2018 11:38 AM Signed Start Meloxicam daily for the next 7-10 days. Please notify office if no improvement after 5 days sooner if any new or worsening symptoms. Ice to neck and shoulders 3x a day. Avoid heat. Okay Tylenol as needed for breakthrough pain. Neck stretching exercises 1-2x a day. Referring Provider: SELF [[id number]] Allergies As of Date: 04/07/2018 Noted Allergy Reaction CATS 12/07/2010 9 - Itching RAGWEED 12/07/2010 14 - Other: See Comments Comments: Itching eyes, breathing Date Reviewed: 04/07/2018 Reviewed by: Dayana Lacey Ma - Fully Assessed Reason for Visit: Pain [78] Cmt: Neck and shoulder pain x 3 weeks, fatigue, Hx of [place]otos Primary Visit Diagnosis:Cervicalgia [M54.2] Other Visit Diagnosis:Strain of cervical portion of both trapezius muscles [S16.1XXA] Order(s):meloxicam (MOBIC) 7.5 mg tabletTake 1 tablet by mouth once daily. for pain. Take with food.Disp: 20 tabletRfl: 0 Prescriptions as of 04/07/2018 Sig: VALSARTAN 80 MG TABLET Take 1 tablet by mouth once d* MELOXICAM 7.5 MG TABLET Take 1 tablet by mouth once d* PREDNISONE 10 MG TABLET 6 tabs po day 1, then 5 tabs * SILDENAFIL 50 MG TABLET Take 1 tablet by mouth as nee* ARMOUR THYROID 120 MG TABLET TAKE 1 TABLET DAILY IBUPROFEN 200 MG CAPSULE Take by mouth. * MULTIVITAMIN TABLET Take 1 tablet by mouth once d* * VITAMIN B COMPLEX CAPSULE Take 1 capsule by mouth once * * OTC PRODUCT twice daily. Magnesium comple* * VITAMIN D2 ORAL Take by mouth once daily. * ASCORBIC ACID (VITAMIN C) 500* Take 500 mg by mouth twice da* Problem List As Of Date 04/07/2018 Noted Resolved SKIN HYPERTRO/ATROPH NOS [L91.9, L90.9] INVALID FOR* BENIGN MARCUS SKIN TRUNK [D23.5] INVALID FOR* SEBORRHEIC KERATOSIS NOS [L82.1] INVALID FOR* CHR SOLAR SKIN DAMAGE NOS [L57.8] INVALID FOR* SCAR AND FIBROSIS OF SKIN [L90.5] INVALID FOR* UNCERTAIN BEHAV NEOPL SKIN [D48.5] INVALID FOR* AXILLARY////BENIGN NEOPLASM OF SKIN [216] INVALID FOR* Cough [R05] INVALID FOR* More... Acquired hypothyroidism [E03.9] INVALID FOR* More... Essential hypertension [I10] INVALID FOR* More... OA (osteoarthritis) of knee [M17.10] INVALID FOR* More... Other instructions from your clinician: Start Meloxicam daily for the next 7-10 days. Please notify office if no improvement after 5 days sooner if any new or worsening symptoms. Ice to neck and shoulders 3x a day. Avoid heat. Okay Tylenol as needed for breakthrough pain. Neck stretching exercises 1-2x a day. Prescriptions ordered this encounter Disp Refills Start End MELOXICAM 7.5 MG TABLET 20 t* 0 04/07/2018 Route: ORAL Sig: Take 1 tablet by mouth once daily. for pain. Take with food. Encounter Status:Closed by REY SPARROW CNP on 04/07/18 PROGRESS Observed: 12/24/2017 Status: COMPLETED Source: [place] 10:06 AM [facility] REPOSIT[facility] HNO ID: [id number] Author: Hoa Evans (Odin) NHUNG Correa Service: (none) Author Type: Physician Digital Field Service Technician Type: Progress Notes Filed: 12/24/2017 11:24 AM Note Text: SKIN EXAM FOLLOWUP CC: This patient is a 57 year old male. Patient presents with: Full Body Skin Check HPI: -FBSE -Patient notes a spot on top of scalp that recently showed up -He states it is itchy at times and would like it removed -Personal history of skin cancer: No -History of blistering sunburns:No -Family history of skin cancer: No SOC: Social History Marital status: Spouse name: Years of education: Number of children: Social History Main Topics Smoking status: Never Smoker Smokeless tobacco: Never Used Alcohol use: Yes Comment: rarely Drug use: No Social History Narrative Lives with 2 daughters and a , also has his older mother move in with him. MEDS: Current outpatient prescriptions: Current Outpatient Prescriptions on File Prior to Visit: sildenafil (VIAGRA) 50 mg tablet Take 1 tablet by mouth as needed. Take 30 to 60min before sexual activity. valsartan (DIOVAN) 80 mg tablet Take 1 tablet by mouth once daily. ARMOUR THYROID 120 mg tablet TAKE 1 TABLET DAILY Ibuprofen 200 mg cap Take by mouth. multivitamin (MULTIPLE VITAMINS DAILY) ORAL tablet Take 1 tablet by mouth once daily. B Complex Vitamins (VITAMIN B COMPLEX) ORAL capsule Take 1 capsule by mouth once daily. OTC PRODUCT twice daily. Magnesium complex vitamin ERGOCALCIFEROL, VITAMIN D2, (VITAMIN D ORAL) Take by mouth once daily. ascorbic acid (VITAMIN C) 500 mg ORAL tablet Take 500 mg by mouth twice daily. No current facility-administered medications on file prior to visit. ALLERGY: ALLERGIES Allergen Reactions - Cats Itching - Ragweed Other: See Comments Itching eyes, breathing REVIEW OF SYSTEMS: Patient feels well and denies any recent fevers, chills, or nightsweats. Skin: spot on scalp PHYSICAL EXAM: The patient is a pleasant male in no distress. Patient appears healthy, well developed, well nourished and in otherwise good health. Alert and oriented x 3. A skin exam was done of the scalp, face including eyelids and lips, ears, neck, chest, back, abdomen, bilateral upper extremities including digits, bilateral lower extremities and digits, buttocks, nails. Nava Skin Type: II IMPRESSION: Frontal scalp light brown stuck on papule with surrounding erythema Dome shaped papules throughout lower legs Brown stuck on plaques throughout Densely scattered light cedeno macules noted on all sun exposed areas Regular and symmetric hyperpigmented macules throughout Small villalobos red papules throughout A/P: 1) Inflamed Seborrheic Keratosis,skin pain- recommend LN2 PROCEDURE: Cryosurgery of non-malignant lesion(s) Risks, benefits, alternatives and personnel required for cryosurgery reviewed with patient. Pt verbalizes understanding and wishes to proceed. Cryosurgery performed with Liquid Nitrogen via cryostat spray gun to Inflamed Seborrheic Keratoses. 1 lesions treated. Wound care instructions provided, pt verbalizes understanding. Yady Zhou CMA 2) Dermatofibroma- reassured and educated. 3) Solar lentigines, Clinically benign appearing nevi , Angiomas, Seborrheic Keratoses- reassured and educated, Sunscreen / sunblock protection reviewed. I counseled the patient after the exam about the ABCDEs of nevus evaluation, pre-cancer,skin cancer surveillance with monthly self skin exams. Follow up in 1 year and PRN Hoa Correa PA-C Attending: Dr. Ferguson The documentation for this note was completed by Yady Zhou CMA acting as scribe for Hoa Correa PA-C, PA. December 24, 2017 10:06 AM. I agree with the Chief Complaint, ROS, and Past Histories independently gathered by the clinical applications support lead and the remaining scribed note accurately describes my personal service to the patient. CNOV Observed: 12/24/2017 Status: COMPLETED Source: [place] 9:55 AM [facility] REPOSITORY Office Visit (DERMAV) WALDO FRANKS ([id number]) 1960 M Date Time Provider Department 12/24/17 9:55 AM HOA CORREA) DERMAV During your visit today, we recorded the following information about you: Hoa Correa PA-C, PA 12/24/2017 11:24 AM Signed SKIN EXAM FOLLOWUP CC: This patient is a 57 year old male. Patient presents with: Full Body Skin Check HPI: -FBSE -Patient notes a spot on top of scalp that recently showed up -He states it is itchy at times and would like it removed -Personal history of skin cancer: No -History of blistering sunburns:No -Family history of skin cancer: No SOC: Social History Marital status: Spouse name: Years of education: Number of children: Social History Main Topics Smoking status: Never Smoker Smokeless tobacco: Never Used Alcohol use: Yes Comment: rarely Drug use: No Social History Narrative Lives with 2 daughters and a , also has his older mother move in with him. MEDS: Current outpatient prescriptions: Current Outpatient Prescriptions on File Prior to Visit: sildenafil (VIAGRA) 50 mg tablet Take 1 tablet by mouth as needed. Take 30 to 60min before sexual activity. valsartan (DIOVAN) 80 mg tablet Take 1 tablet by mouth once daily. ARMOUR THYROID 120 mg tablet TAKE 1 TABLET DAILY Ibuprofen 200 mg cap Take by mouth. multivitamin (MULTIPLE VITAMINS DAILY) ORAL tablet Take 1 tablet by mouth once daily. B Complex Vitamins (VITAMIN B COMPLEX) ORAL capsule Take 1 capsule by mouth once daily. OTC PRODUCT twice daily. Magnesium complex vitamin ERGOCALCIFEROL, VITAMIN D2, (VITAMIN D ORAL) Take by mouth once daily. ascorbic acid (VITAMIN C) 500 mg ORAL tablet Take 500 mg by mouth twice daily. No current facility-administered medications on file prior to visit. ALLERGY: ALLERGIES Allergen Reactions - Cats Itching - Ragweed Other: See Comments Itching eyes, breathing REVIEW OF SYSTEMS: Patient feels well and denies any recent fevers, chills, or nightsweats. Skin: spot on scalp PHYSICAL EXAM: The patient is a pleasant male in no distress. Patient appears healthy, well developed, well nourished and in otherwise good health. Alert and oriented x 3. A skin exam was done of the scalp, face including eyelids and lips, ears, neck, chest, back, abdomen, bilateral upper extremities including digits, bilateral lower extremities and digits, buttocks, nails. Nava Skin Type: II IMPRESSION: Frontal scalp light brown stuck on papule with surrounding erythema Dome shaped papules throughout lower legs Brown stuck on plaques throughout Densely scattered light cedeno macules noted on all sun exposed areas Regular and symmetric hyperpigmented macules throughout Small villalobos red papules throughout A/P: 1) Inflamed Seborrheic Keratosis,skin pain- recommend LN2 PROCEDURE: Cryosurgery of non-malignant lesion(s) Risks, benefits, alternatives and personnel required for cryosurgery reviewed with patient. Pt verbalizes understanding and wishes to proceed. Cryosurgery performed with Liquid Nitrogen via cryostat spray gun to Inflamed Seborrheic Keratoses. 1 lesions treated. Wound care instructions provided, pt verbalizes understanding. Yady Zhou CMA 2) Dermatofibroma- reassured and educated. 3) Solar lentigines, Clinically benign appearing nevi , Angiomas, Seborrheic Keratoses- reassured and educated, Sunscreen / sunblock protection reviewed. I counseled the patient after the exam about the ABCDEs of nevus evaluation, pre-cancer,skin cancer surveillance with monthly self skin exams. Follow up in 1 year and PRN Hoa Correa PA-C Attending: Dr. Ferguson The documentation for this note was completed by Yady Zhou CMA acting as scribe for Hoa Correa PA-C, PA. December 24, 2017 10:06 AM. I agree with the Chief Complaint, ROS, and Past Histories independently gathered by the clinical applications support lead and the remaining scribed note accurately describes my personal service to the patient. Yady Zhou 12/24/2017 10:29 AM Signed [facility] Liquid Nitrogen Therapy Care Instructions 1. The area may be red and puffy. Cool compress or a washcloth will help with the discomfort. 2. A blister, even a blood blister, may form. You will feel better if you break it. Use a sterile needle and gently squeeze out the fluid. 3. Clean area with soap and water daily. A band aid is not necessary, but may be used for protection. Change it daily. Do not leave a soiled or wet band aid on the wound. 4. Apply vaseline daily until scab comes off. 5. Aspirin, Tylenol, or Ibuprophen may be used for pain. 6. As soon as scab has formed, you do not need to cleanse area and you may leave the bandage off. The scab will generally fall off in 3-4 weeks on the face, but may take longer on the other areas of the body. 7. Call if you have any problems or questions or if these areas recur or do not go away Referring Provider: ELIECER GARDINER (ASHLEIGH)(HIST) [[id number]] Allergies As of Date: 12/24/2017 Noted Allergy Reaction CATS 12/07/2010 9 - Itching RAGWEED 12/07/2010 14 - Other: See Comments Comments: Itching eyes, breathing Date Reviewed: 12/24/2017 Reviewed by: Natalya Dlil Ma - Fully Assessed Reason for Visit: Full Body Skin Check [1445] Primary Visit Diagnosis:Inflamed seborrheic keratosis [L82.0] Other Visit Diagnoses:Skin pain [R20.8] Seborrheic keratosis [L82.1] Multiple benign nevi [D22.9] Angioma of skin [D18.01] Solar lentigo [L81.4] Dermatofibroma [D23.9] Pruritus [L29.9] Prescriptions as of 12/24/2017 Sig: SILDENAFIL 50 MG TABLET Take 1 tablet by mouth as nee* VALSARTAN 80 MG TABLET Take 1 tablet by mouth once d* ARMOUR THYROID 120 MG TABLET TAKE 1 TABLET DAILY IBUPROFEN 200 MG CAPSULE Take by mouth. * MULTIVITAMIN TABLET Take 1 tablet by mouth once d* * VITAMIN B COMPLEX CAPSULE Take 1 capsule by mouth once * * OTC PRODUCT twice daily. Magnesium comple* * VITAMIN D2 ORAL Take by mouth once daily. * ASCORBIC ACID (VITAMIN C) 500* Take 500 mg by mouth twice da* Problem List As Of Date 12/24/2017 Noted Resolved SKIN HYPERTRO/ATROPH NOS [L91.9, L90.9] INVALID FOR* BENIGN MARCUS SKIN TRUNK [D23.5] INVALID FOR* SEBORRHEIC KERATOSIS NOS [L82.1] INVALID FOR* CHR SOLAR SKIN DAMAGE NOS [L57.8] INVALID FOR* SCAR AND FIBROSIS OF SKIN [L90.5] INVALID FOR* UNCERTAIN BEHAV NEOPL SKIN [D48.5] INVALID FOR* AXILLARY////BENIGN NEOPLASM OF SKIN [216] INVALID FOR* Cough [R05] INVALID FOR* More... Acquired hypothyroidism [E03.9] INVALID FOR* More... Essential hypertension [I10] INVALID FOR* More... OA (osteoarthritis) of knee [M17.10] INVALID FOR* More... Other instructions from your clinician: [facility] Liquid Nitrogen Therapy Care Instructions 1. The area may be red and puffy. Cool compress or a washcloth will help with the discomfort. 2. A blister, even a blood blister, may form. You will feel better if you break it. Use a sterile needle and gently squeeze out the fluid. 3. Clean area with soap and water daily. A band aid is not necessary, but may be used for protection. Change it daily. Do not leave a soiled or wet band aid on the wound. 4. Apply vaseline daily until scab comes off. 5. Aspirin, Tylenol, or Ibuprophen may be used for pain. 6. As soon as scab has formed, you do not need to cleanse area and you may leave the bandage off. The scab will generally fall off in 3-4 weeks on the face, but may take longer on the other areas of the body. 7. Call if you have any problems or questions or if these areas recur or do not go away Disposition: Return in about 1 year (around 12/24/2018) for 1 year FBSE. Follow-up and Disposition History Recorded Encounter Status:Closed by HOA CORREA PA-C on 12/24/17 PROGRESS Observed: 11/18/2017 Status: COMPLETED Source: [place] 11:14 AM [facility] [place] REPOSITORY O ID: [id number] Author: Rey Shen) [place] Service: (none) Author Type: Nurse Practitioner Type: Progress Notes Filed: 11/18/2017 11:51 AM Note Text: CC: Patient presents with: Recheck: HTN follow up HPI Waldo Franks is a 57 year old male who presents today for 6 week follow up of HTN. HTN: Mr. Franks indicates that he is feeling well and denies any symptoms referable to elevated blood pressure. Specifically denies headache, chest pain, palpitations, dyspnea and peripheral edema. Patient admits to having side effects of GI upset and bloating even at 1/2 strength. Patient currently taking 40mg of Diovan. He does check BP's away from this office with average BP's in the 130s/80s range. Waldo works out regularly 3-4 times per week with walking. He intends to being regular exercise now that he is seeing an can line examiner for his Mk's and symptoms, specifically fatigue is improving. His ultimate goal is to be taken off of blood pressure medication in the future. He watches his diet for sodium, low fat and low cholesterol most of the time. Last 3 Encounter BP Readings: Date: BP: 11/18/2017 126/84 10/28/2017 134/88 10/13/2017 144/84 REVIEW OF SYSTEMS General: no fevers, no chills, no night sweats, no recurrent infections, no change in appetite, no change in energy and no significant changes in weight HEENT: no frequent or significant headaches, no changes in hearing, no visual changes, no nose bleeds, no sinus or nasal problems Respiratory: no cough, no wheezing, no shortness of breath, no hemoptysis Cardiovascular: no chest pain, no chest pressure, no palpitations and no swelling Skin: Negative for lesions, rash, and itching Endocrine: no fatigue, no weight gain, no weight loss, no hair loss, no dry skin, no cold intolerance, no heat intolerance, no neck pain/pressure, no polyuria, no polyphagia and no polydipsia Neurologic: No headache, weakness, numbness, tingling, neck stiffness, tremor, vertigo, dizziness, memory loss, syncope. PAST MEDICAL HISTORY Diagnosis Date - Depression - Mk's disease - Hypertension - Hypothyroid PAST SURGICAL HISTORY Procedure Laterality Date - COLONOSCOP W/ OR W/O [facility] SPEC 06/11/13 Colonoscopy - REMOVAL OF TONSILS,<12 Y/O 2004 Tonsillectomy alone - REPAIR ING HERNIA,5+Y/O,REDUCIBL Hernia repair, inguinal - REPAIR OF NASAL SEPTUM 1978 Septoplasty ALLERGIES Cats; Ragweed MEDICATIONS sildenafil (VIAGRA) 50 mg tablet Take 1 tablet by mouth as needed. Take 30 to 60min before sexual activity. valsartan (DIOVAN) 80 mg tablet Take 1 tablet by mouth once daily. ARMOUR THYROID 120 mg tablet TAKE 1 TABLET DAILY Ibuprofen 200 mg cap Take by mouth. multivitamin (MULTIPLE VITAMINS DAILY) ORAL tablet Take 1 tablet by mouth once daily. B Complex Vitamins (VITAMIN B COMPLEX) ORAL capsule Take 1 capsule by mouth once daily. OTC PRODUCT twice daily. Magnesium complex vitamin ERGOCALCIFEROL, VITAMIN D2, (VITAMIN D ORAL) Take by mouth once daily. ascorbic acid (VITAMIN C) 500 mg ORAL tablet Take 500 mg by mouth twice daily. FAMILY HISTORY Problem Relation Age of Onset - Thyroid Father hypothyroidism - Hodgkins [OTHER] Father in remission, later from injuries in a car accident. - Breast Cancer Mother - Myastenia Gravis [OTHER] Mother - ulcerative colitis [OTHER] Mother - Cancer Maternal Grandfather liver - CHF [OTHER] Maternal Grandmother - Diabetes Paternal Grandmother - IN [OTHER] Paternal Grandfather - Hypertension Brother also kidney stones - hiatial hernia - mk's [OTHER] Daughter - mk's [OTHER] Daughter Social History Substance Use Topics - Smoking status: Never Smoker - Smokeless tobacco: Never Used - Alcohol use Yes Comment: rarely PHYSICAL EXAM BP 126/84 Pulse 66 Temp 36.6 ?C (97.8 ?F) (Temporal Artery) Resp 16 Wt 118.4 kg (261 lb) SpO2 99% BMI 34.43 kg/m? General Appearance: well appearing, in no acute distress, alert Skin: Skin color, texture, turgor normal for age; Head: normocephalic, atraumatic Eyes: conjunctiva pink and moist, no icterus, sclera white, non-injected Heart: regular rate and rhythm, without murmur Lungs: Lungs clear to auscultation. No wheezing, rhonchi, rales DTAP,TDAP,TD(1 - Tdap) due on 10/16/1978 DIABETES SCREEN due on 05/02/2020 LIPID SCREEN due on 07/05/2021 COLORECTAL CANCER SCREENING,SEE MODIFIER due on 06/11/2023 PROSTATE CANCER SCREENING DISCUSSION Completed INFLUENZA Completed HEPATITIS C SCREENING Completed ASSESSMENT/PLAN: 1. Essential hypertension - ICD9: 401.9, ICD10: I10 - good control - Continue current medication(s) - Encouraged dietary sodium restriction/DASH diet - Recommended regular aerobic exercise. - Discussed need and benefit for weight loss. - Recheck in 5-6 months, sooner should new symptoms or problems arise. - Goal of BP <140/90 - Recommended no refined sugar, low refined starch, healthy oil intake (olive oil), healthy protein (fish) along the lines of the Mediterranean diet. Rey Sparrow APRN.CHILD THERAPIST Prescription instructions reviewed with patient as applicable. Potential red flag symptoms discussed with the patient. Reviewed appropriate action plan to take if red flag symptoms occur. Patient agreeable to treatment plan. CNOV Observed: 11/18/2017 Status: COMPLETED Source: [place] 11:00 AM [facility] REPOSITORY Office Visit (INTMWS) WALDO FRANKS ([id number]) 1960 M Date Time Provider Department 11/18/17 11:00 AM REY SPARROW (ASHLEIGH) INTMWS During your visit today, we recorded the following information about you: Temperature Pulse Respiration Blood pressure 97.8 degrees 66/minute 16/minute 126/84 Weight 118.4 kg Rey Sparrow APRN.CNP 11/18/2017 11:51 AM Signed CC: Patient presents with: Recheck: HTN follow up HPI Waldo Franks is a 57 year old male who presents today for 6 week follow up of HTN. HTN: Mr. Franks indicates that he is feeling well and denies any symptoms referable to elevated blood pressure. Specifically denies headache, chest pain, palpitations, dyspnea and peripheral edema. Patient admits to having side effects of GI upset and bloating even at 1/2 strength. Patient currently taking 40mg of Diovan. He does check BP's away from this office with average BP's in the 130s/80s range. Waldo works out regularly 3-4 times per week with walking. He intends to being regular exercise now that he is seeing an can line examiner for his Mk's and symptoms, specifically fatigue is improving. His ultimate goal is to be taken off of blood pressure medication in the future. He watches his diet for sodium, low fat and low cholesterol most of the time. Last 3 Encounter BP Readings: Date: BP: 11/18/2017 126/84 10/28/2017 134/88 10/13/2017 144/84 REVIEW OF SYSTEMS General: no fevers, no chills, no night sweats, no recurrent infections, no change in appetite, no change in energy and no significant changes in weight HEENT: no frequent or significant headaches, no changes in hearing, no visual changes, no nose bleeds, no sinus or nasal problems Respiratory: no cough, no wheezing, no shortness of breath, no hemoptysis Cardiovascular: no chest pain, no chest pressure, no palpitations and no swelling Skin: Negative for lesions, rash, and itching Endocrine: no fatigue, no weight gain, no weight loss, no hair loss, no dry skin, no cold intolerance, no heat intolerance, no neck pain/pressure, no polyuria, no polyphagia and no polydipsia Neurologic: No headache, weakness, numbness, tingling, neck stiffness, tremor, vertigo, dizziness, memory loss, syncope. PAST MEDICAL HISTORY Diagnosis Date - Depression - Mk's disease - Hypertension - Hypothyroid PAST SURGICAL HISTORY Procedure Laterality Date - COLONOSCOP W/ OR W/O [facility] SPEC 06/11/13 Colonoscopy - REMOVAL OF TONSILS,<12 Y/O 2004 Tonsillectomy alone - REPAIR ING HERNIA,5+Y/O,REDUCIBL Hernia repair, inguinal - REPAIR OF NASAL SEPTUM 1978 Septoplasty ALLERGIES Cats; Ragweed MEDICATIONS sildenafil (VIAGRA) 50 mg tablet Take 1 tablet by mouth as needed. Take 30 to 60min before sexual activity. valsartan (DIOVAN) 80 mg tablet Take 1 tablet by mouth once daily. ARMOUR THYROID 120 mg tablet TAKE 1 TABLET DAILY Ibuprofen 200 mg cap Take by mouth. multivitamin (MULTIPLE VITAMINS DAILY) ORAL tablet Take 1 tablet by mouth once daily. B Complex Vitamins (VITAMIN B COMPLEX) ORAL capsule Take 1 capsule by mouth once daily. OTC PRODUCT twice daily. Magnesium complex vitamin ERGOCALCIFEROL, VITAMIN D2, (VITAMIN D ORAL) Take by mouth once daily. ascorbic acid (VITAMIN C) 500 mg ORAL tablet Take 500 mg by mouth twice daily. FAMILY HISTORY Problem Relation Age of Onset - Thyroid Father hypothyroidism - Hodgkins [OTHER] Father in remission, later from injuries in a car accident. - Breast Cancer Mother - Myastenia Gravis [OTHER] Mother - ulcerative colitis [OTHER] Mother - Cancer Maternal Grandfather liver - CHF [OTHER] Maternal Grandmother - Diabetes Paternal Grandmother - IN [OTHER] Paternal Grandfather - Hypertension Brother also kidney stones - hiatial hernia - mk's [OTHER] Daughter - mk's [OTHER] Daughter Social History Substance Use Topics - Smoking status: Never Smoker - Smokeless tobacco: Never Used - Alcohol use Yes Comment: rarely PHYSICAL EXAM BP 126/84 Pulse 66 Temp 36.6 ?C (97.8 ?F) (Temporal Artery) Resp 16 Wt 118.4 kg (261 lb) SpO2 99% BMI 34.43 kg/m? General Appearance: well appearing, in no acute distress, alert Skin: Skin color, texture, turgor normal for age; Head: normocephalic, atraumatic Eyes: conjunctiva pink and moist, no icterus, sclera white, non-injected Heart: regular rate and rhythm, without murmur Lungs: Lungs clear to auscultation. No wheezing, rhonchi, rales DTAP,TDAP,TD(1 - Tdap) due on 10/16/1978 DIABETES SCREEN due on 05/02/2020 LIPID SCREEN due on 07/05/2021 COLORECTAL CANCER SCREENING,SEE MODIFIER due on 06/11/2023 PROSTATE CANCER SCREENING DISCUSSION Completed INFLUENZA Completed HEPATITIS C SCREENING Completed ASSESSMENT/PLAN: 1. Essential hypertension - ICD9: 401.9, ICD10: I10 - good control - Continue current medication(s) - Encouraged dietary sodium restriction/DASH diet - Recommended regular aerobic exercise. - Discussed need and benefit for weight loss. - Recheck in 5-6 months, sooner should new symptoms or problems arise. - Goal of BP <140/90 - Recommended no refined sugar, low refined starch, healthy oil intake (olive oil), healthy protein (fish) along the lines of the Mediterranean diet. Rey Sparrow APRN.CHILD THERAPIST Prescription instructions reviewed with patient as applicable. Potential red flag symptoms discussed with the patient. Reviewed appropriate action plan to take if red flag symptoms occur. Patient agreeable to treatment plan. Referring Provider: LUCIA JOHNSTON [[id number]] Allergies As of Date: 11/18/2017 Noted Allergy Reaction CATS 12/07/2010 9 - Itching RAGWEED 12/07/2010 14 - Other: See Comments Comments: Itching eyes, breathing Date Reviewed: 11/18/2017 Reviewed by: Dayana Lacey Ma - Fully Assessed Reason for Visit: Recheck [92] Cmt: HTN follow up Primary Visit Diagnosis:Essential hypertension [I10] Prescriptions as of 11/18/2017 Sig: SILDENAFIL 50 MG TABLET Take 1 tablet by mouth as nee* VALSARTAN 80 MG TABLET Take 1 tablet by mouth once d* ARMOUR THYROID 120 MG TABLET TAKE 1 TABLET DAILY IBUPROFEN 200 MG CAPSULE Take by mouth. * MULTIVITAMIN TABLET Take 1 tablet by mouth once d* * VITAMIN B COMPLEX CAPSULE Take 1 capsule by mouth once * * OTC PRODUCT twice daily. Magnesium comple* * VITAMIN D2 ORAL Take by mouth once daily. * ASCORBIC ACID (VITAMIN C) 500* Take 500 mg by mouth twice da* Problem List As Of Date 11/18/2017 Noted Resolved SKIN HYPERTRO/ATROPH NOS [L91.9, L90.9] INVALID FOR* BENIGN MARCUS SKIN TRUNK [D23.5] INVALID FOR* SEBORRHEIC KERATOSIS NOS [L82.1] INVALID FOR* CHR SOLAR SKIN DAMAGE NOS [L57.8] INVALID FOR* SCAR AND FIBROSIS OF SKIN [L90.5] INVALID FOR* UNCERTAIN BEHAV NEOPL SKIN [D48.5] INVALID FOR* AXILLARY////BENIGN NEOPLASM OF SKIN [216] INVALID FOR* Cough [R05] INVALID FOR* More... Acquired hypothyroidism [E03.9] INVALID FOR* More... Essential hypertension [I10] INVALID FOR* More... OA (osteoarthritis) of knee [M17.10] INVALID FOR* More... Encounter Status:Closed by REY SPARROW CNP on 11/18/17 CNNURSE Observed: 10/28/2017 Status: COMPLETED Source: [place] 11:45 AM [facility] REPOSITORY Nurse Visit (FAMPWS) WALDO FRANKS ([id number]) 1960 M Date Time Provider Department 10/28/17 11:45 AM [facility] During your visit today, we recorded the following information about you: Pulse Blood pressure 74/minute 134/88 Karely Colton TAMAYO 10/28/2017 11:46 AM Signed Manual Readin/88 Pulse: 74 Reason for blood pressure check - Last BP elevated Patient is: Taking medication as prescribed Yes Took medication today Yes If no, date medication last taken N/A Experiencing side effects yes BP was elevated at last appt 10/13/17. No BP medication changes were made at that time. Does report that he is only taking 40mg daily of the Diovan. Reports that the 80mg daily was causing some stomach issues for him (did try to go back to full tablet with same results). Denies any chest pain, shortness of breath, dizziness, or headaches. Daily caffeine use. No personal history of tobacco use; no current exposure. Alert and oriented. Pt has been identified by name and birthdate: Yes Allergies reviewed: Yes Latex allergy: no. Medication - prescribed and OTC reviewed and updated: Yes Do you need any prescription refills prior to your next visit: No Health Maintenance: Reviewed and up to date Patient advised to continue with current medications and would be contacted with any further instructions after review by PCP. Karely Segura LPN Referring Provider: LUCIA JOHNSTON [[id number]] Allergies As of Date: 10/28/2017 Noted Allergy Reaction CATS 12/07/2010 9 - Itching RAGWEED 12/07/2010 14 - Other: See Comments Comments: Itching eyes, breathing Date Reviewed: 08/21/2017 Reviewed by: Chrissy Camp Mash Preparatory Operator - Fully Assessed Reason for Visit: Blood Pressure Check [195] Primary Visit Diagnosis:Essential hypertension [I10] Prescriptions as of 10/28/2017 Sig: SILDENAFIL 50 MG TABLET Take 1 tablet by mouth as nee* VALSARTAN 80 MG TABLET Take 1 tablet by mouth once d* ARMOUR THYROID 120 MG TABLET TAKE 1 TABLET DAILY IBUPROFEN 200 MG CAPSULE Take by mouth. * MULTIVITAMIN TABLET Take 1 tablet by mouth once d* * VITAMIN B COMPLEX CAPSULE Take 1 capsule by mouth once * * OTC PRODUCT twice daily. Magnesium comple* * VITAMIN D2 ORAL Take by mouth once daily. * ASCORBIC ACID (VITAMIN C) 500* Take 500 mg by mouth twice da* Medication notes this encounter VALSARTAN 80 MG TABLET >> Karely Segura LPN 10/28/2017 11:40 AM >> KARELY SEGURA LPN FriOct 28, 2017 11:40 AM Taking 1/2 tablet daily Problem List As Of Date 10/28/2017 Noted Resolved SKIN HYPERTRO/ATROPH NOS [L91.9, L90.9] INVALID FOR* BENIGN MARCUS SKIN TRUNK [D23.5] INVALID FOR* SEBORRHEIC KERATOSIS NOS [L82.1] INVALID FOR* CHR SOLAR SKIN DAMAGE NOS [L57.8] INVALID FOR* SCAR AND FIBROSIS OF SKIN [L90.5] INVALID FOR* UNCERTAIN BEHAV NEOPL SKIN [D48.5] INVALID FOR* AXILLARY////BENIGN NEOPLASM OF SKIN [216] INVALID FOR* Cough [R05] INVALID FOR* More... Acquired hypothyroidism [E03.9] INVALID FOR* More... Essential hypertension [I10] INVALID FOR* More... OA (osteoarthritis) of knee [M17.10] INVALID FOR* More... Encounter Status:Closed by KARELY SEGURA LPN on 10/28/17 PROGRESS Observed: 10/28/2017 Status: COMPLETED Source: [place] 11:40 AM [facility] REPOSITORY HNO ID: [id number] Author: Karely Segura LPN Service: (none) Author Type: (none) Type: Progress Notes Filed: 10/28/2017 11:46 AM Note Text: Manual Readin/88 Pulse: 74 Reason for blood pressure check - Last BP elevated Patient is: Taking medication as prescribed Yes Took medication today Yes If no, date medication last taken N/A Experiencing side effects yes BP was elevated at last appt 10/13/17. No BP medication changes were made at that time. Does report that he is only taking 40mg daily of the Diovan. Reports that the 80mg daily was causing some stomach issues for him (did try to go back to full tablet with same results). Denies any chest pain, shortness of breath, dizziness, or headaches. Daily caffeine use. No personal history of tobacco use; no current exposure. Alert and oriented. Pt has been identified by name and birthdate: Yes Allergies reviewed: Yes Latex allergy: no. Medication - prescribed and OTC reviewed and updated: Yes Do you need any prescription refills prior to your next visit: No Health Maintenance: Reviewed and up to date Patient advised to continue with current medications and would be contacted with any further instructions after review by PCP. Karely Segura LPN PROGRESS Observed: 10/13/2017 Status: COMPLETED Source: [place] 12:08 PM [facility] REPOSITORY HNO ID: [id number] Author: Lucia Johnston Service: (none) Author Type: Physician Type: Progress Notes Filed: 10/13/2017 5:23 PM Note Text: Reason for Visit Patient presents with: Established Patient: 6 week follow up-meds, htn Waldo Franks is a 56 year old male who presents here today for Above Complaints.. Health Maintenance There are no preventive care reminders to display for this patient. HPI He was taking only half a pill daily and since then his bp has been better but not completely controlled. tsh was mildly elevated and he needs to recheck. Also for his relatively low testosterone he would like to see headend technician CHRIST, I let him know that if needed he may have to see a endo doc he is agreeable No problem-specific Assessment AND Plan notes found for this encounter. PAST MEDICAL HISTORY Diagnosis Date - Depression - Mk's disease - Hypertension - Hypothyroid PAST SURGICAL HISTORY Procedure Laterality Date - COLONOSCOP W/ OR W/O [facility] SPEC 06/11/13 Colonoscopy - REMOVAL OF TONSILS,<12 Y/O 2004 Tonsillectomy alone - REPAIR ING HERNIA,5+Y/O,REDUCIBL Hernia repair, inguinal - REPAIR OF NASAL SEPTUM 1978 Septoplasty FAMILY HISTORY Problem Relation Age of Onset - Thyroid Father hypothyroidism - Hodgkins [OTHER] Father in remission, later from injuries in a car accident. - Breast Cancer Mother - Myastenia Gravis [OTHER] Mother - ulcerative colitis [OTHER] Mother - Cancer Maternal Grandfather liver - CHF [OTHER] Maternal Grandmother - Diabetes Paternal Grandmother - IN [OTHER] Paternal Grandfather - Hypertension Brother also kidney stones - hiatial hernia - mk's [OTHER] Daughter - mk's [OTHER] Daughter Social History Substance Use Topics - Smoking status: Never Smoker - Smokeless tobacco: Never Used - Alcohol use Yes Comment: rarely Past medical history, appointments, medications, allergies reviewed. Pertinent Lab/Diagnostic Studies are reviewed and discussed today Current Outpatient Prescriptions: - valsartan (DIOVAN) 80 mg tablet - sildenafil (VIAGRA) 50 mg tablet - ARMOUR THYROID 120 mg tablet - Tadalafil (CIALIS) 10 mg tablet - ARMOUR THYROID 90 mg tab - Ibuprofen 200 mg cap - multivitamin (MULTIPLE VITAMINS DAILY) ORAL tablet - B Complex Vitamins (VITAMIN B COMPLEX) ORAL capsule - OTC PRODUCT - ERGOCALCIFEROL, VITAMIN D2, (VITAMIN D ORAL) - ascorbic acid (VITAMIN C) 500 mg ORAL tablet Review of Systems CONSTITUTIONAL: No fevers, chills night sweats, unintended weight loss CARDIOVASCULAR: No chest pain, dyspnea, palpitations, orthopnea, PND, ankle edema. PULM: No dyspnea, unexplained cough. GI: No dysphagia/odynophagia, problematic reflux, constipation, diarrhea, changes in stool habits, hematochezia, melena. : No new urinary complaints, including dysuria, gross hematuria or pyuria. NEURO: No new balance problems, peripheral weakness/paresthesias or numbness of concern. Physical Exam BP 150/80 (BP Site: Left Arm, BP Position: Sitting, BP Cuff Size: Large Adult) Pulse 81 Resp 12 Ht 185.4 cm (6' 1) Wt 118.4 kg (261 lb) SpO2 96% BMI 34.43 kg/m2 General appearance: Well appearing, alert, in no acute distress, well nourished. Skin: Skin color, texture, turgor normal, no suspicious rashes or lesions Head: Normocephalic, no masses, lesions, tenderness or abnormalities Eyes: Anicteric sclera. Pupils are equally round and reactive to light. Extraocular movements are intact. Lungs: Lungs clear to auscultation. No wheezing, rhonchi, rales Heart: RRR without murmur, gallop, or rubs. ASSESSMENT/PLAN: 1. Essential hypertension - ICD9: 401.9, ICD10: I10 (primary diagnosis) - good control - Recommended regular aerobic exercise. - Recommend home blood pressure monitoring, to bring results in on next visit - Goal of BP <130/80 2. Acquired hypothyroidism - ICD9: 244.9, ICD10: E03.9 - Instructed patient on importance of taking on an empty stomach either first thing in the morning or at bedtime. - TSH BLD 3. Erectile dysfunction, unspecified erectile dysfunction type - ICD9: 607.84, ICD10: N52.9 - SILDENAFIL 50 MG TABLET LUCIA JOHNSTON MD PROGRESS Observed: 10/13/2017 Status: COMPLETED Source: [place] 12:06 PM [facility] REPOSITORY HNO ID: [id number] Author: Lucia Johnston Service: (none) Author Type: Physician Type: Progress Notes Filed: 10/13/2017 5:22 PM Note Text: Reason for Visit Patient presents with: Established Patient: 6 week follow up-meds, htn Waldo Franks is a 56 year old male who presents here today for Above Complaints.. Health Maintenance There are no preventive care reminders to display for this patient. HPI He has not been taking his bp medication at its full strength, as he is generally apprehensive of medications, but he is willing to take it at a full dose now that he know he can tolerate it. Need to recheck his thyroid No problem-specific Assessment AND Plan notes found for this encounter. PAST MEDICAL HISTORY Diagnosis Date - Depression - Mk's disease - Hypertension - Hypothyroid PAST SURGICAL HISTORY Procedure Laterality Date - COLONOSCOP W/ OR W/O [facility] SPEC 06/11/13 Colonoscopy - REMOVAL OF TONSILS,<12 Y/O 2004 Tonsillectomy alone - REPAIR ING HERNIA,5+Y/O,REDUCIBL Hernia repair, inguinal - REPAIR OF NASAL SEPTUM 1978 Septoplasty FAMILY HISTORY Problem Relation Age of Onset - Thyroid Father hypothyroidism - Hodgkins [OTHER] Father in remission, later from injuries in a car accident. - Breast Cancer Mother - Myastenia Gravis [OTHER] Mother - ulcerative colitis [OTHER] Mother - Cancer Maternal Grandfather liver - CHF [OTHER] Maternal Grandmother - Diabetes Paternal Grandmother - IN [OTHER] Paternal Grandfather - Hypertension Brother also kidney stones - hiatial hernia - mk's [OTHER] Daughter - mk's [OTHER] Daughter Social History Substance Use Topics - Smoking status: Never Smoker - Smokeless tobacco: Never Used - Alcohol use Yes Comment: rarely Past medical history, appointments, medications, allergies reviewed. Pertinent Lab/Diagnostic Studies are reviewed and discussed today Current Outpatient Prescriptions: - sildenafil (VIAGRA) 50 mg tablet - valsartan (DIOVAN) 80 mg tablet - ARMOUR THYROID 120 mg tablet - Ibuprofen 200 mg cap - multivitamin (MULTIPLE VITAMINS DAILY) ORAL tablet - B Complex Vitamins (VITAMIN B COMPLEX) ORAL capsule - OTC PRODUCT - ERGOCALCIFEROL, VITAMIN D2, (VITAMIN D ORAL) - ascorbic acid (VITAMIN C) 500 mg ORAL tablet Review of Systems CONSTITUTIONAL: No fevers, chills night sweats, unintended weight loss CARDIOVASCULAR: No chest pain, dyspnea, palpitations, orthopnea, PND, ankle edema. PULM: No dyspnea, unexplained cough. GI: No dysphagia/odynophagia, problematic reflux, constipation, diarrhea, changes in stool habits, hematochezia, melena. : No new urinary complaints, including dysuria, gross hematuria or pyuria. NEURO: No new balance problems, peripheral weakness/paresthesias or numbness of concern. Physical Exam BP 144/84 Pulse 81 Resp 12 Ht 185.4 cm (6' 1) Wt 118.4 kg (261 lb) SpO2 96% BMI 34.43 kg/m2 General appearance: Well appearing, alert, in no acute distress, well nourished. Skin: Skin color, texture, turgor normal, no suspicious rashes or lesions Head: Normocephalic, no masses, lesions, tenderness or abnormalities Eyes: Anicteric sclera. Pupils are equally round and reactive to light. Extraocular movements are intact. Lungs: Lungs clear to auscultation. No wheezing, rhonchi, rales Heart: RRR without murmur, gallop, or rubs. Extremities: No deformities, edema, skin discoloration, clubbing or cyanosis. Good capillary refill. ASSESSMENT/PLAN: 1. Essential hypertension - ICD9: 401.9, ICD10: I10 (primary diagnosis) - good control - Recommended regular aerobic exercise. - Recommend home blood pressure monitoring, to bring results in on next visit - Goal of BP <130/80 2. Acquired hypothyroidism - ICD9: 244.9, ICD10: E03.9 - Instructed patient on importance of taking on an empty stomach either first thing in the morning or at bedtime. - TSH BLD 3. Erectile dysfunction, unspecified erectile dysfunction type - ICD9: 607.84, ICD10: N52.9 - SILDENAFIL 50 MG TABLET LUCIA JOHNSTON MD CNOV Observed: 10/13/2017 Status: COMPLETED Source: [place] 11:40 AM [facility] REPOSITORY Office Visit (INTMWS) WALDO FRANKS ([id number]) 1960 M Date Time Provider Department 10/13/17 11:40 AM LUCIA JOHNSTON IN[facility]WS During your visit today, we recorded the following information about you: Pulse Respiration Blood pressure Weight 81/minute 12/minute 144/84 118.4 kg Height 1.854 m LUCIA JOHNSTON MD 10/13/2017 5:22 PM Signed Reason for Visit Patient presents with: Established Patient: 6 week follow up-meds, htn Waldo Franks is a 56 year old male who presents here today for Above Complaints.. Health Maintenance There are no preventive care reminders to display for this patient. HPI He has not been taking his bp medication at its full strength, as he is generally apprehensive of medications, but he is willing to take it at a full dose now that he know he can tolerate it. Need to recheck his thyroid No problem-specific Assessment ANDamp; Plan notes found for this encounter. PAST MEDICAL HISTORY Diagnosis Date - Depression - Mk's disease - Hypertension - Hypothyroid PAST SURGICAL HISTORY Procedure Laterality Date - COLONOSCOP W/ OR W/O [facility] SPEC 06/11/13 Colonoscopy - REMOVAL OF TONSILS,ANDlt;11 Y/O 2004 Tonsillectomy alone - REPAIR ING HERNIA,5+Y/O,REDUCIBL Hernia repair, inguinal - REPAIR OF NASAL SEPTUM 1978 Septoplasty FAMILY HISTORY Problem Relation Age of Onset - Thyroid Father hypothyroidism - Hodgkins [OTHER] Father in remission, later from injuries in a car accident. - Breast Cancer Mother - Myastenia Gravis [OTHER] Mother - ulcerative colitis [OTHER] Mother - Cancer Maternal Grandfather liver - CHF [OTHER] Maternal Grandmother - Diabetes Paternal Grandmother - IN [OTHER] Paternal Grandfather - Hypertension Brother also kidney stones - hiatial hernia - mk's [OTHER] Daughter - mk's [OTHER] Daughter Social History Substance Use Topics - Smoking status: Never Smoker - Smokeless tobacco: Never Used - Alcohol use Yes Comment: rarely Past medical history, appointments, medications, allergies reviewed. Pertinent Lab/Diagnostic Studies are reviewed and discussed today Current Outpatient Prescriptions: - sildenafil (VIAGRA) 50 mg tablet - valsartan (DIOVAN) 80 mg tablet - ARMOUR THYROID 120 mg tablet - Ibuprofen 200 mg cap - multivitamin (MULTIPLE VITAMINS DAILY) ORAL tablet - B Complex Vitamins (VITAMIN B COMPLEX) ORAL capsule - OTC PRODUCT - ERGOCALCIFEROL, VITAMIN D2, (VITAMIN D ORAL) - ascorbic acid (VITAMIN C) 500 mg ORAL tablet Review of Systems CONSTITUTIONAL: No fevers, chills night sweats, unintended weight loss CARDIOVASCULAR: No chest pain, dyspnea, palpitations, orthopnea, PND, ankle edema. PULM: No dyspnea, unexplained cough. GI: No dysphagia/odynophagia, problematic reflux, constipation, diarrhea, changes in stool habits, hematochezia, melena. : No new urinary complaints, including dysuria, gross hematuria or pyuria. NEURO: No new balance problems, peripheral weakness/paresthesias or numbness of concern. Physical Exam BP 144/84 Pulse 81 Resp 12 Ht 185.4 cm (6' 1ANDquot;) Wt 118.4 kg (261 lb) SpO2 96% BMI 34.43 kg/m2 General appearance: Well appearing, alert, in no acute distress, well nourished. Skin: Skin color, texture, turgor normal, no suspicious rashes or lesions Head: Normocephalic, no masses, lesions, tenderness or abnormalities Eyes: Anicteric sclera. Pupils are equally round and reactive to light. Extraocular movements are intact. Lungs: Lungs clear to auscultation. No wheezing, rhonchi, rales Heart: RRR without murmur, gallop, or rubs. Extremities: No deformities, edema, skin discoloration, clubbing or cyanosis. Good capillary refill. ASSESSMENT/PLAN: 1. Essential hypertension - ICD9: 401.9, ICD10: I10 (primary diagnosis) - good control - Recommended regular aerobic exercise. - Recommend home blood pressure monitoring, to bring results in on next visit - Goal of BP ANDlt;130/80 2. Acquired hypothyroidism - ICD9: 244.9, ICD10: E03.9 - Instructed patient on importance of taking on an empty stomach either first thing in the morning or at bedtime. - TSH BLD 3. Erectile dysfunction, unspecified erectile dysfunction type - ICD9: 607.84, ICD10: N52.9 - SILDENAFIL 50 MG TABLET MD LUCIA ARROYO MD 10/13/2017 5:23 PM Addendum Reason for Visit Patient presents with: Established Patient: 6 week follow up-meds, htn Waldo Franks is a 56 year old male who presents here today for Above Complaints.. Health Maintenance There are no preventive care reminders to display for this patient. HPI He was taking only half a pill daily and since then his bp has been better but not completely controlled. tsh was mildly elevated and he needs to recheck. Also for his relatively low testosterone he would like to see headend technician CHRIST, I let him know that if needed he may have to see a endo doc he is agreeable No problem-specific Assessment ANDamp; Plan notes found for this encounter. PAST MEDICAL HISTORY Diagnosis Date - Depression - Mk's disease - Hypertension - Hypothyroid PAST SURGICAL HISTORY Procedure Laterality Date - COLONOSCOP W/ OR W/O [facility] SPEC 06/11/13 Colonoscopy - REMOVAL OF TONSILS,ANDlt;11 Y/O 2004 Tonsillectomy alone - REPAIR ING HERNIA,5+Y/O,REDUCIBL Hernia repair, inguinal - REPAIR OF NASAL SEPTUM 1978 Septoplasty FAMILY HISTORY Problem Relation Age of Onset - Thyroid Father hypothyroidism - Hodgkins [OTHER] Father in remission, later from injuries in a car accident. - Breast Cancer Mother - Myastenia Gravis [OTHER] Mother - ulcerative colitis [OTHER] Mother - Cancer Maternal Grandfather liver - CHF [OTHER] Maternal Grandmother - Diabetes Paternal Grandmother - IN [OTHER] Paternal Grandfather - Hypertension Brother also kidney stones - hiatial hernia - mk's [OTHER] Daughter - mk's [OTHER] Daughter Social History Substance Use Topics - Smoking status: Never Smoker - Smokeless tobacco: Never Used - Alcohol use Yes Comment: rarely Past medical history, appointments, medications, allergies reviewed. Pertinent Lab/Diagnostic Studies are reviewed and discussed today Current Outpatient Prescriptions: - valsartan (DIOVAN) 80 mg tablet - sildenafil (VIAGRA) 50 mg tablet - ARMOUR THYROID 120 mg tablet - Tadalafil (CIALIS) 10 mg tablet - ARMOUR THYROID 90 mg tab - Ibuprofen 200 mg cap - multivitamin (MULTIPLE VITAMINS DAILY) ORAL tablet - B Complex Vitamins (VITAMIN B COMPLEX) ORAL capsule - OTC PRODUCT - ERGOCALCIFEROL, VITAMIN D2, (VITAMIN D ORAL) - ascorbic acid (VITAMIN C) 500 mg ORAL tablet Review of Systems CONSTITUTIONAL: No fevers, chills night sweats, unintended weight loss CARDIOVASCULAR: No chest pain, dyspnea, palpitations, orthopnea, PND, ankle edema. PULM: No dyspnea, unexplained cough. GI: No dysphagia/odynophagia, problematic reflux, constipation, diarrhea, changes in stool habits, hematochezia, melena. : No new urinary complaints, including dysuria, gross hematuria or pyuria. NEURO: No new balance problems, peripheral weakness/paresthesias or numbness of concern. Physical Exam BP 150/80 (BP Site: Left Arm, BP Position: Sitting, BP Cuff Size: Large Adult) Pulse 81 Resp 12 Ht 185.4 cm (6' 1ANDquot;) Wt 118.4 kg (261 lb) SpO2 96% BMI 34.43 kg/m2 General appearance: Well appearing, alert, in no acute distress, well nourished. Skin: Skin color, texture, turgor normal, no suspicious rashes or lesions Head: Normocephalic, no masses, lesions, tenderness or abnormalities Eyes: Anicteric sclera. Pupils are equally round and reactive to light. Extraocular movements are intact. Lungs: Lungs clear to auscultation. No wheezing, rhonchi, rales Heart: RRR without murmur, gallop, or rubs. ASSESSMENT/PLAN: 1. Essential hypertension - ICD9: 401.9, ICD10: I10 (primary diagnosis) - good control - Recommended regular aerobic exercise. - Recommend home blood pressure monitoring, to bring results in on next visit - Goal of BP ANDlt;130/80 2. Acquired hypothyroidism - ICD9: 244.9, ICD10: E03.9 - Instructed patient on importance of taking on an empty stomach either first thing in the morning or at bedtime. - TSH BLD 3. Erectile dysfunction, unspecified erectile dysfunction type - ICD9: 607.84, ICD10: N52.9 - SILDENAFIL 50 MG TABLET LUCIA JOHNSTON MD Referring Provider: LUCIA JOHNSTON [[id number]] Allergies As of Date: 10/13/2017 Noted Allergy Reaction CATS 12/07/2010 9 - Itching RAGWEED 12/07/2010 14 - Other: See Comments Comments: Itching eyes, breathing Date Reviewed: 08/21/2017 Reviewed by: Chrissy Camp Mash Preparatory Operator - Fully Assessed Reason for Visit: Established Patient [175] Cmt: 6 week follow up-meds, htn Primary Visit Diagnosis:Essential hypertension [I10] Other Visit Diagnoses:Acquired hypothyroidism [E03.9] Erectile dysfunction, unspecified erectile dysfunction type [N52.9] Order(s):sildenafil (VIAGRA) 50 mg tabletTake 1 tablet by mouth as needed. Take 30 to 60min before sexual activity.Disp: 8 tabletRfl: 0 TSH BLD [SQTSH] Order #: [id number] FUTURE Prescriptions as of 10/13/2017 Sig: SILDENAFIL 50 MG TABLET Take 1 tablet by mouth as nee* VALSARTAN 80 MG TABLET Take 1 tablet by mouth once d* ARMOUR THYROID 120 MG TABLET TAKE 1 TABLET DAILY IBUPROFEN 200 MG CAPSULE Take by mouth. * MULTIVITAMIN TABLET Take 1 tablet by mouth once d* * VITAMIN B COMPLEX CAPSULE Take 1 capsule by mouth once * * OTC PRODUCT twice daily. Magnesium comple* * VITAMIN D2 ORAL Take by mouth once daily. * ASCORBIC ACID (VITAMIN C) 500* Take 500 mg by mouth twice da* Problem List As Of Date 10/13/2017 Noted Resolved SKIN HYPERTRO/ATROPH NOS [L91.9, L90.9] INVALID FOR* BENIGN MARCUS SKIN TRUNK [D23.5] INVALID FOR* SEBORRHEIC KERATOSIS NOS [L82.1] INVALID FOR* CHR SOLAR SKIN DAMAGE NOS [L57.8] INVALID FOR* SCAR AND FIBROSIS OF SKIN [L90.5] INVALID FOR* UNCERTAIN BEHAV NEOPL SKIN [D48.5] INVALID FOR* AXILLARY////BENIGN NEOPLASM OF SKIN [216] INVALID FOR* Cough [R05] INVALID FOR* More... Acquired hypothyroidism [E03.9] INVALID FOR* More... Essential hypertension [I10] INVALID FOR* More... OA (osteoarthritis) of knee [M17.10] INVALID FOR* More... Prescriptions ordered this encounter Disp Refills Start End SILDENAFIL 50 MG TABLET 8 ta* 0 10/13/2017 Class: Print RX Route: ORAL Sig: Take 1 tablet by mouth as needed. Take 30 to 60min before sexual activity. Medications Discontinued During This Encounter ARMOUR THYROID 90 mg tab 30 t* 2 08/14/2015 10/13/2017 Route: ORAL Sig: Take 1 tablet by mouth once daily. Disc: Reason for discontinue is not on file. Tadalafil (CIALIS) 10 mg tablet 30 t* 2 07/28/2017 10/13/2017 Sig: To take as needed Disc: Reason for discontinue is not on file. sildenafil (VIAGRA) 50 mg tablet 8 ta* 0 08/12/2017 10/13/2017 Route: ORAL Sig: Take 1 tablet by mouth as needed. Take 30 to 60min before sexual activity. Disc: Reason for discontinue is not on file. Encounter Status:Closed by LUCIA JOHNSTON MD on 10/13/17 OFFICE VISIT REPORT Observed: 09/11/2017 Status: F Source: [place] 2:28 PM [facility] [place] [address] OFFICE VISIT Date of Service: 09/11/17 MR#: [id number] Acct: [id number] Patient: WALDO FRANKS Rep #: [id number] : 1960 Provider: Zuleika Reed NP Age/Sex: 56/M Location: [facility] [place] Status: Signed Intake Vital Signs09/11/17 Height 6 ft 1 in 09/11/17 Weight: 266 lb 09/11/17 Body Mass Index (BMI) 35.1 09/11/17 Blood Pressure 155/95 09/11/17 Blood Pressure Location Lt popliteal 09/11/17 Blood Pressure Position Sitting Intake Visit Reasons: MK AND PRE DIABETIC Field Care Manager Required: No Accompanied by: Self Is patient in pain?: No Allergies No Known Allergies Allergy (Verified 01/24/15 15:31) cats Allergy (Severe, Uncoded 09/11/17 08:46) Unknown hay fever Allergy (Severe, Uncoded 09/11/17 08:46) Unknown Medications thyroid (pork) 120 mg tablet 120 mg PO QDAY 09/11/17 [History Confirmed 09/11/17] PFSH Medical History Mk's disease (Acute) High cholesterol (Acute) High triglycerides (Acute) Pre-diabetes (Acute) Seasonal allergies (Acute) Thyroid disease (Acute) HTN (hypertension) (Chronic) Surgical History H/O hernia repair (Acute) Hx of tonsillectomy (Acute) Family History Father Asthma Cancer Hypertension Thyroid disorder Mother Breast cancer Osteoporosis Myasthenia gravis Daughter Thyroid disorder Brother Kidney stones Social History Smoking Status: Never smoker second hand exposure: No alcohol intake: current substance use type: does not use Questionnaire Depression Screen PHQ-2/9 PHQ-2 Over the last 2 weeks, how often have you been bothered by any of the following problems? 1. Little interest or pleasure in doing things: more than half the days 2. Feeling down, depressed, or hopeless: more than half the days Total score: 4 If score is 2 or greater, continue 3. Trouble falling or staying asleep, or sleeping too much: more than half the days 4. Feeling tired or having little energy: nearly every day 5. Poor appetite or overeating: several days 6. Feeling bad about yourself - or that you are a failure or have let yourself and your family down: several days 7. Trouble concentrating on things, such as reading the newspaper or watching television: several days 8. Moving or speaking so slowly that other people could have noticed? - Or the opposite - being so fidgety or restless that you have been moving around a lot more than usual: several days 9. Thoughts that you would be better off or of hurting yourself in some way: not at all Total score: 13 If you checked off any problems, how difficult have these problems made it for you to do your work, take care of things at home, or get along with other people?: somewhat difficult Source: Developed by Drs. Parth Castellano, Ale Breen, Waldo Ely and colleagues, with an educational lucía from [employer]. Scoring: Total Score Depression Severity Action 1-4 Minimal depression No action needed 5-9 Mild depression Repeat PHQ-9 at follow up 10-14 Moderate depression Make tx plan,consider counseling, fup, prescription HPI HPI Details: WALDO FRANKS, is a 56 M who presents to the office today for hypothyroidism. States he was diagnosed in 2015. Currently takes armoir thyroid 120mcg. States this was changed from 90mcg at his last visit a few months ago. Severity, modifying factors, context, and associated signs and symptoms are as follows: Thyroid pain: No Energy: Reduced Sleep: Not awakened refreshed Temp: No intolerance GI: Normal bowel Weight: increased Eyes: No change in vision Memory: unchanged Diaphoresis: Not significant Skin: Dry Hair : Unchanged Neuro: No numbness, tingling or tremors Feels as though he has brain fog. No difficulty swallowing or choking on food. Takes his armoir daily. Does not miss any doses. Does not take within 4 hours of vitamins,iron, or calcium. TSH 6.04 09/2016 ROS Const Constitutional: Positive for fatigue; no anorexia, body ache, chills, fever(s), frequent falls, decreased energy, malaise, night sweats, weakness, weight change, sleep problems, abnormal sleep pattern, change in appetite, other, headache(s), snoring or excessive sweating Eyes Eyes: No blurry vision, change in vision, double vision, discharge, dry eyes, bulging eyes, floaters, visual disturbances, eye pain, light sensitivity, spots in vision, tunnel vision or other ENT ENT: No abnormal hearing, ear pain, ear discharge, ear pressure, hearing loss, tinnitus, dizziness/vertigo, balance problems, nosebleed/epistaxis, nasal congestion, nasal obstruction, nose pain, sinus pressure, sinus pain, nasal discharge, post nasal drip, headache(s), facial pain, dental pain, dry mouth, bad breath, hoarseness, lip swelling, mouth lesions, mouth pain, sore throat, tongue swelling, throat swelling, other, difficulty swallowing or neck pain Resp Respiratory: No cough, change in phlegm color, chest congestion, excessive phlegm production, hemoptysis, pain on inspiration, shortness of breath, pain with cough, snoring, stridor, wheezing or other Cardio Cardiology: No chest pain at rest, chest pain with exertion, leg pain with exertion, excessive sweating, shortness of breath, dyspnea on exertion, generalized swelling, irregular heart rhythm, lightheadedness, orthopnea, radiating jaw, neck or arm pain, fast heart rate, slow heart rate, palpitations or other Gastro GI: No abdominal pain, belching, bloating, change in bowel habits, change in stool character, coffee ground emesis, constipation, cramping, diarrhea, heartburn, difficulty swallowing, feeling full early, excessive flatus, incontinent of stools, Vomiting blood/hematemesis, blood in stool, loose stools, Black,tarry stools, nausea/dyspepsia, pain with swallowing, vomiting or other Genitourinary Male: No difficulty urinating, burning urination, painful urination, urinary incontinence, urinary frequency, urinary urgency, urinary hesitancy, urinary retention, blood in urine, Frequent nighttime urination/ nocturia, post void dribbling, suprapubic fullness, side pain, sexual problems, genital lesions, genital itching, erectile dysfunction, penile discharge, difficulty with ejaculations, blood in semen, scrotal swelling, testicle lump, testicle pain or other Musc Musculoskeletal: No abnormal walking, joint pain, back pain, deformity, joint swelling, limited range of motion, loss of height, muscle cramps, muscle weakness, decreased muscle mass, body aches, neck pain, numbness, radiating pain into limb, stiffness, tingling or other Neuro Neurology: No frequent falls, weakness, visual disturbances, abnormal hearing, headache(s), abnormal walking, numbness or tingling Psych Psychiatric: No abnormal sleep pattern, No change in appetite Endo Endocrine: Positive for fatigue; no other or excessive sweating Aller/Imm Allergy/Immunologic: No lip swelling, tongue swelling, throat swelling or wheezing Exam Const General: comfortable, no acute distress Nutritional Appearance: well nourished Orientation: oriented x3 [facility] Head: normal to inspection, atraumatic Ears: hearing grossly normal bilaterally Mouth: oral mucosae normal, moist mucous membranes Teeth and gingiva: dentition normal Eyes Eyelids: eyelids normal Conjunctivae: conjunctivae normal Sclera: sclerae normal Neck Neck: normal visual inspection, full ROM Neck mass: No Thyroid: thyroid normal Resp Effort AND Inspection: normal respiratory effort, able to speak in complete sentences, symmetric chest movement Auscultation: Bilateral: Clear to Auscultation Cardio Rate: regular rate Rhythm: regular rhythm Heart Sounds: S1 normal, S2 normal GI Inspection: normal to inspection Auscultation: normal bowel sounds Palpation: soft Musc Musculoskeletal: No muscle weakness Skin General: no rashes or lesions noted Wounds: no wounds Neuro General: gait normal Cognition: normal cognition Speech: speech normal Extrem General: normal to inspection, full ROM, no edema Psych Appearance: well kempt Mental Status: mental status grossly normal Mood: congruent mood Affect: normal affect Speech and Movement: speech and movement normal Attitude: cooperative Thought Process: normal Thought Content: normal Judgment: judgment good Assessment AND Plan Problems 1. Hypothyroidism (acquired) E03.9 Plan Is currently on thyroid replacement. TSH 6.04 notes additional replacement needed. Will ask pt to increase to 7.5 pills weekly of armoir 120mcg. Recheck lab in 4-5 weeks Call for results Call if you have any concerns or change in condition. RTC 3-4 months Orders Orders: Coding Level of Care Code Off vis,new,level 4 Diagnoses Hypothyroidism (acquired) E03.9 Time Spent (min) 60 09/11/17 9948 <Electronically signed by Zuleika DAVIS> Date Zuleika Arlette DAVIS Cosigner Signature: Date (if applicable) CC: TSH Collected: 08/21/2017 Status: F Source: [place] 10:40 AM [facility] REPOSITORY TYPE CODE TESTS RESULT OUT OF RANGE REFERENCE UNITS LAB TSH 0.400-5.500 uU/mL High TSH 6.040 Performed By: #### TSH, FTESTO #### [facility] [address], [place] [id number] FREE TESTOSTERONE Collected: 08/21/2017 Status: F Source: [place] 10:40 [facility] REPOSITORY TYPE CODE TESTS RESULT OUT OF REFERENCE UNITS RANGE LAB TESTO 193-824 ng/dL Testosterone 225 Result Comment: A testosterone level in the 193-320 ng/dL range with associated clinical symptoms is considered low and may indicate hypogonadism (from NEJM 2010 363:123-135). Results >320 ng/dL are considered normal. LAB FREE 1.4-3.2 % Free Testosterone % 2.9 LAB FRTSTO 41.7-180.2 pg/mL Free Testosterone 65.0 Result Comment: This test was developed and its performance characteristics determined by [facility]'s Parth Jolley [facility] [place] [facility]). It has not been cleared or approved by the FDA. -[facility] is regulated under CLIA as qualified to perform high-complexity testing. This test is used for clinical purposes. It should not be regarded as investigational or for research. Performed By: #### TSH, FTESTO #### [facility] [address], [place] [id number] PROGRESS Observed: 08/21/2017 Status: COMPLETED Source: [place] 10:08 AM [facility] REPOSITORY O ID: [id number] Author: Lucia Johnston Service: (none) Author Type: Physician Type: Progress Notes Filed: 08/21/2017 1:35 PM Note Text: Reason for Visit Patient presents with: Recheck Waldo Franks is a 56 year old male who presents here today for Above Complaints.. Health Maintenance There are no preventive care reminders to display for this patient. HPI He feels wired a lot nowadays. He thinks the mk's disease has a lot to do with how he feels. He has a hard time doing anything. tsh was High last time. He is taking him medication more regularly. He has noticed less energy and less desire to exercise, decreased libido and hair loss BP is high today and has been for a while, he has not really taken medication, when he was rx last time, thought he did not need it, discussed that improtance of having a good blood pressure No problem-specific Assessment AND Plan notes found for this encounter. PAST MEDICAL HISTORY Diagnosis Date - Depression - Mk's disease - Hypertension - Hypothyroid PAST SURGICAL HISTORY Procedure Laterality Date - COLONOSCOP W/ OR W/O [facility] SPEC 06/11/13 Colonoscopy - REMOVAL OF TONSILS,<12 Y/O 2004 Tonsillectomy alone - REPAIR ING HERNIA,5+Y/O,REDUCIBL Hernia repair, inguinal - REPAIR OF NASAL SEPTUM 1978 Septoplasty FAMILY HISTORY Problem Relation Age of Onset - Thyroid Father hypothyroidism - Hodgkins [OTHER] Father in remission, later from injuries in a car accident. - Breast Cancer Mother - Myastenia Gravis [OTHER] Mother - ulcerative colitis [OTHER] Mother - Cancer Maternal Grandfather liver - CHF [OTHER] Maternal Grandmother - Diabetes Paternal Grandmother - IN [OTHER] Paternal Grandfather - Hypertension Brother also kidney stones - hiatial hernia - mk's [OTHER] Daughter - mk's [OTHER] Daughter Social History Substance Use Topics - Smoking status: Never Smoker - Smokeless tobacco: Never Used - Alcohol use Yes Comment: rarely Past medical history, appointments, medications, allergies reviewed. Pertinent Lab/Diagnostic Studies are reviewed and discussed today Current Outpatient Prescriptions: - sildenafil (VIAGRA) 50 mg tablet - ARMOUR THYROID 120 mg tablet - Tadalafil (CIALIS) 10 mg tablet - ARMOUR THYROID 90 mg tab - Ibuprofen 200 mg cap - multivitamin (MULTIPLE VITAMINS DAILY) ORAL tablet - B Complex Vitamins (VITAMIN B COMPLEX) ORAL capsule - OTC PRODUCT - ERGOCALCIFEROL, VITAMIN D2, (VITAMIN D ORAL) - ascorbic acid (VITAMIN C) 500 mg ORAL tablet Review of Systems CONSTITUTIONAL: No fevers, chills night sweats, unintended weight loss CARDIOVASCULAR: No chest pain, dyspnea, palpitations, orthopnea, PND, ankle edema. PULM: No dyspnea, unexplained cough. GI: No dysphagia/odynophagia, problematic reflux, constipation, diarrhea, changes in stool habits, hematochezia, melena. : No new urinary complaints, including dysuria, gross hematuria or pyuria. NEURO: No new balance problems, peripheral weakness/paresthesias or numbness of concern. Physical Exam BP 160/102 Pulse 87 Resp 18 Wt 120.7 kg (266 lb) SpO2 98% BMI 35.09 kg/m2 General appearance: Well appearing, alert, in no acute distress, well nourished. Skin: Skin color, texture, turgor normal, no suspicious rashes or lesions Head: Normocephalic, no masses, lesions, tenderness or abnormalities Eyes: Anicteric sclera. Pupils are equally round and reactive to light. Extraocular movements are intact. Lungs: Lungs clear to auscultation. No wheezing, rhonchi, rales Heart: RRR without murmur, gallop, or rubs. Extremities: No deformities, edema, skin discoloration, clubbing or cyanosis. Good capillary refill. ASSESSMENT/PLAN: 1. Low energy - ICD9: 780.79, ICD10: R53.83 (primary diagnosis) Will test his testosterone levels. 2. Depression, unspecified depression type - ICD9: 311, ICD10: F32.9 Will test his testosterone levels. He is averse to medication 3. Acquired hypothyroidism - ICD9: 244.9, ICD10: E03.9 - Instructed patient on importance of taking on an empty stomach either first thing in the morning or at bedtime. 4. Essential hypertension - ICD9: 401.9, ICD10: I10 Started him on losartan - Recommended regular aerobic exercise. - Recommend home blood pressure monitoring, to bring results in on next visit - Goal of BP <130/80 ULCIA JOHNSTON MD ALLERGIES ALLERGIES DATE TYPE / CODE NAME / CODE REACTION SEVERITY SOURCE 04/29/2018 Drug No Known Unknown [place] [id number][id number] Repository 04/29/2018 Miscellaneous cats Unknown [place] Allergy/[id number](S [facility] NOMED [facility]) Hospital Repository 04/29/2018 Miscellaneous hay fever Unknown [place] [id number][facility] 12/07/2010 Animal/[id number](SN CATS ITCHING [place] OMED CT) Clinic [facility] [place] Repository 12/07/2010 Environ/[id number](S [place] OTHER: SEE C [place] NOMED CT) Clinic [facility] [place] Repository ENCOUNTERS ENCOUNTERS ADMIT/DISCHARGE ACCOUNT ADMITTING ENCOUNTER LOCATION SOURCE NUMBER CLASS 06/22/2018 [id number] [facility] ing:LAB Repository 06/11/2018/06/12/20 [id number] Ambulatory [address] Repository 05/21/2018/05/21/20 [id number] Ambulatory [address] Repository 05/19/2018/05/19/20 [id number] Ambulatory [address] Repository 05/01/2018/05/01/20 [id number] Ambulatory [address] Repository 04/29/2018/04/29/20 [id number] Ambulatory BMSBuilding:B [place] [facility] Repository 04/07/2018/04/08/[id number] Repository 12/24/2017/12/27/19 [id number] Ambulatory [address] Repository 11/18/2017/11/20/19 [id number] Ambulatory [address] Repository 10/28/2017/10/30/19 [id number] Ambulatory [address] Repository 10/13/2017/10/14/19 [id number] Ambulatory [address] Repository 09/11/2017/09/12/19 [id number] Ambulatory BMSBuilding:B [place] [facility] Repository 08/21/2017/08/21/19 [id number] Ambulatory [address] Repository 08/21/2017/08/21/19 [id number] Ambulatory [address] Repository PAYERS PAYERS ENCOUNTER GUARANTOR PAYER SUBSCRIBER SOURCE 06/22/2018 WALDO R Primary WALDO R [place] [id number] Insurance:CORESOURCEP KNEBUSCHDOB: [address] Number: [id number] [address]Dho: [id number] Repository Date:[id number] BOX (HP) [address]. PATI LAM [id number]: 06/22/2018 Secondary NOT GIVENUNK [place] Insurance:SELF PAY [facility] Number: Effective Repository Date:2018-06-22 04/29/2018 WALDO Primary WALDO [id number] TWP Insurance:CORESOURCEP KNEBUSCHDOB: [address] [place] [address] Number: [id number], [place] [id number] Repository [address]Zst: [phone]) Date:8362-18-24ZQ [phone] () [address] PATI LAM [id number]: 04/29/2018 Secondary NOT GIVENUNK [place] Insurance:SELF PAY [facility] Number: Effective Repository Date:2018-04-29 09/11/2017 WALDO Primary WALDO [place] [id number] TWP Insurance:CORESOURCEP KNEBUSCHDOB: [address] Number: [id number], [place] [id number] Repository [address]Spg: [phone]) Date:4756-57-86QH [phone] () [address]. PATI LAM [id number]: 09/11/2017 Secondary NOT GIVENUNK [place] Insurance:SELF PAY [facility] Number: Effective Repository Date:2017-07-31
== END ==
PROVIDERS: Family Provider Internal Medicine; PCP Internal Medicine; Referring Provider Nurse Practitioner; Visit Provider Nurse Practitioner
DX: E03.9 Hypothyroidism, unspecified (principal)
CPT/HCPCS: 36415; 84439; 84443; 84481